=== PATIENT | male | born 1960 | race Hispanic/Latino ===

== ENCOUNTER 2016-08-13 11:54 | Observation (INO) | payer OTHER ==
[~2016-08-13] VITALS: Ht 167.6 cm; Wt 87.0 kg
[~2016-08-13 11:54] MED LIST: AMOXICILLIN500 MG PO; ANXIETY MED; ASPIRIN EC81 MG PO; ASPIRIN LOW DOS81 M2 PO; ATORVASTATIN CA40 MG PO; BACTRIM DS1 TAB PO; CARDIZEM CD 180 PO; CARDIZEM CD120 M1 PO; CARDIZEM CD120 MG PO; CEPHALEXIN500 MG PO; CIALIS10 MG PO; FISH OIL1000 MG PO; HYDROCO/APAP1 TA9 PO; HYZAAR1 TA1 PO; LEXAPRO10 MG PO; LORTAB 10 PO; LORTAB 1010 MG PO; METFORMIN500 MG PO; MUPIROCIN2 % EX; NAPROSYN500 MG PO; PANTOPRAZOLE SO40 M1 PO; PRAVASTATIN10 MG PO; PREVACID30 M2 PO; PRILOSEC20 MG/CAP PO; PROTONIX40 M2 PO; [UNRECOGNIZED DRUG - REMARK]
--- NOTE | 2016-08-13 12:03 | NUR ---
IN TO DISCUSS POC, ALL QUESTIONs ANSWERED /c FULL UNDERSTANDING RETURNED.
[2016-08-13 12:35] LABS: HEMATOCRIT 41.1 % (39.0-50.0); HEMOGLOBIN 14.2 g/dl (14.0-18.0); IMMATURE GRANULOCYTES 0.2 % (0.0-1.0); MEAN CELL VOLUME 97.9 fL CALC (80.0-100.0); MEAN CORPUSCULAR HGB 33.8 pG CALC (26.0-32.0); MEAN CORPUSCULAR HGB CONC 34.5 g/L CALC (32.0-36.0); NEUT# 3.34 thou/uL (1.82-7.42); RED BLOOD COUNT 4.2 mill/uL (4.70-6.10); RED CELL DISTRI WIDTH 12.8 % (11.5-15.5)
[2016-08-13] MEDS ORDERED: METFORMIN500 M1 PO (12:37)
[2016-08-13] MEDS ORDERED: ASPIRIN 81 LOW81 MG (12:37)
[2016-08-13] MEDS ORDERED: NEXIUM40 M1 PO (12:38)
--- NOTE | 2016-08-13 12:40 | NUR ---
EKG DONE, LINE LAB, CXR.. Pt GOING TO Radiology
[2016-08-13 12:47] LABS: ALBUMIN 4.5 g/dL (3.2-5.0); ALKALINE PHOSPHATASE 94 u/l (38-126); ANION GAP 24 (6-22 (CALC)); BILIRUBIN, TOTAL 0.6 mg/dL (0.0-1.4); BUN 21 mg/dL (9-20); BUN/CREATININE RATIO 21 (12-20 (CALC)); CALCIUM 8.9 mg/dL (8.4-10.2); CARBON DIOXIDE 23 mmol/l (22-30); CHLORIDE 103 mmol/l (95-108); GFR > 60 ML/MIN (>=60 (CALC)); GFR FOR AFR.AMER. > 60 ML/MIN (>=60 (CALC)); GLUCOSE 100 mg/dL (75-110); POTASSIUM 4.1 mmol/l (3.5-5.1); SGOT/AST 86 u/l (17-59); SGPT/ALT 43 u/l (21-72); SODIUM 146 mmol/l (137-146); TOTAL PROTEIN 8.5 g/dL (6.3-8.2)
[2016-08-13 12:59] LABS: MYOGLOBIN 275 ng/mL (0 - 121)
--- NOTE | 2016-08-13 13:15 | NUR ---
BCx1, IVF GOING.. SPOUSE AT BEDSIDE.
--- NOTE | 2016-08-13 14:10 | NUR ---
IN TO COLLECT UA, PER Pt "I WANT A CHEESEBURGER- I FEEL FINE"
[2016-08-13 14:32] LABS: BARBITURATES NEGATIVE (NEGATIVE); COCAINE NEGATIVE (NEGATIVE); METHADONE NEGATIVE (NEGATIVE); OXCYCODONE NEGATIVE (NEGATIVE); TETRAHYDROCANNABIONOL NEGATIVE (NEGATIVE); TRICYLIC ANTIDEPRESSANTS NEGATIVE (NEGATIVE)
--- NOTE | 2016-08-13 14:49 | NUR ---
IN TO REASSESS, PT RESTING QUIETLY /c SPOUSE AT BEDSIDE
--- NOTE | 2016-08-13 15:22 | NUR ---
IN TO REASSESS, STATUS UNCHANGED. LAB HERE FOR 2nd LACTIC
--- NOTE | 2016-08-13 15:49 | NUR ---
FAMILY AT BEDSIDE, Pt APPEARs COMFORTABLE.
--- NOTE | 2016-08-13 16:09 | NUR ---
AT BEDSIDE TO DISCUSS RESULTs AND NEED FOR ADMIT/TRANSFER
--- NOTE | 2016-08-13 16:20 | NUR ---
REPORT TO Trisha KRAMER MS
--- NOTE | 2016-08-13 16:46 | NUR ---
TO FLOOR VIA STRETCHER. NURSE TO NURSE GIVEN
[2016-08-13 17:02] VITALS: BP 150/88
--- NOTE | 2016-08-13 17:24 | NUR ---
PT ARRIVED FROM ER VIA STRETCEHR ACCOMPANIED BY STAFF. IV SITE IS FREE FROM REDNESS OR EDEMA. TELE MONITOR IN PLACE. CONTINUE TO OBSERVE AND MONITOR.
--- NOTE | 2016-08-13 18:03 | NUR ---
ASSESSMENT IS COMPLETED: IV SITE IS FREE FROM REDNESS OR EDEMA. TELE MONITOR IN PLACE
--- NOTE | 2016-08-13 19:00 | NUR ---
RECEIVED REPORT ON PATIENT FROM OFF GOING NURSE. PATIENT IN STABLE CONDITION. NO ACUTE DISTRESS NOTED. SPOUSE VISITING WITH PATIENT AT THIS TIME.
[2016-08-13 19:20] VITALS: BP 144/80
[2016-08-13 23:36] VITALS: BP 152/75
--- NOTE | 2016-08-14 | NUR ---
PATIENT RESTING QUIETLY. NO ACUTE DISTRESS NOTED.
[2016-08-14 03:58] VITALS: BP 160/94
--- NOTE | 2016-08-14 04:00 | NUR ---
PATIENT RESTING COMFORTABLY IN BED. NO ACUTE DISTRESS NOTED.
[2016-08-14 06:15] LABS: HEMATOCRIT 38.1 % (39.0-50.0); HEMOGLOBIN 13.1 g/dl (14.0-18.0); IMMATURE GRANULOCYTES 0.3 % (0.0-1.0); MEAN CELL VOLUME 97.4 fL CALC (80.0-100.0); MEAN CORPUSCULAR HGB 33.5 pG CALC (26.0-32.0); MEAN CORPUSCULAR HGB CONC 34.4 g/L CALC (32.0-36.0); NEUT# 4.88 thou/uL (1.82-7.42); RED BLOOD COUNT 3.91 mill/uL (4.70-6.10); RED CELL DISTRI WIDTH 12.6 % (11.5-15.5)
[2016-08-14 06:41] LABS: ANION GAP 17 (6-22 (CALC)); BUN 13 mg/dL (9-20); BUN/CREATININE RATIO 20 (12-20 (CALC)); CALCIUM 8.7 mg/dL (8.4-10.2); CARBON DIOXIDE 25 mmol/l (22-30); CHLORIDE 100 mmol/l (95-108); CREATININE 0.7 mg/dL (0.7-1.3); GFR > 60 ML/MIN (>=60 (CALC)); GFR FOR AFR.AMER. > 60 ML/MIN (>=60 (CALC)); GLUCOSE 108 mg/dL (75-110); HDL CHOLESTEROL 50 mg/dL (>=40); POTASSIUM 3.6 mmol/l (3.5-5.1); SODIUM 139 mmol/l (137-146); TOTAL CHOLESTEROL 261 mg/dl (0-199)
[2016-08-14 06:48] LABS: VLDL CHOLESTROL 117 mg/dl (8-62 (CALC))
[2016-08-14 06:55] LABS: TOTAL TRIGLYCERIDES 585 mg/dl (30-149)
--- NOTE | 2016-08-14 08:10 | NUR ---
ASSESSMENT IS COMPLETED: PT IS SITTING UP IN THE CHAIR. FAMILY IN THE ROOM. IV SITE IS FREE FROM REDNESS OR EDEMA. TELE MONITOR IN PLACE. CONTINUE TO OSBERVE AND MONITOR.
[2016-08-14] MEDS ORDERED: LIBRIUM25 M1 PO (09:02)
[2016-08-14 09:12] VITALS: BP 166/100
--- NOTE | 2016-08-14 11:11 | NUR ---
PT RECEIVED DISCHARGE INSTRUCTIONS AND THE IV SITE WAS DISCONTINUED AND CATHETER INTACT. NO REDNESS OR EDEMA. FAMILY IN THE ROOM.
--- NOTE | 2016-08-14 11:12 | NUR ---
Discharge instructions given. Patient verbalizes understanding of same. Discharged in stable condition via Wheelchair to Home with family. All belongings sent with pt.
== END 2016-08-14 10:46 | disposition home or self-care (01) | DRG 897 ==
LOC: ENPENDDIS → ED 11:54 → ED-I 16:00 → ED 16:08 → MS2 16:09
PROVIDERS: Emergency Medicine; ADMIT Internal Medicine; ATTEND Internal Medicine
DX: F10.229 Alcohol dependence with intoxication, unspecified (principal); E87.2 Acidosis; R07.89 Other chest pain; I10 Essential (primary) hypertension; E78.5 Hyperlipidemia, unspecified; K21.9 Gastro-esophageal reflux disease without esophagitis; R73.03 Prediabetes; Z87.891 Personal history of nicotine dependence
CPT/HCPCS: G0378

== ENCOUNTER 2016-09-10 20:51 | Emergency (ER) | payer OTHER ==
[~2016-09-10] VITALS: Ht 167.6 cm; Wt 84.1 kg
[~2016-09-10 20:51] MED LIST changes: +ASPIRIN 81 LOW81 MG; +LIBRIUM25 M1 PO; +METFORMIN500 M1 PO; +NEXIUM40 M1 PO
[2016-09-10 21:30] LABS: HEMATOCRIT 45.5 % (39.0-50.0); HEMOGLOBIN 16.1 g/dl (14.0-18.0); IMMATURE GRANULOCYTES 0.4 % (0.0-1.0); MEAN CELL VOLUME 96.2 fL CALC (80.0-100.0); MEAN CORPUSCULAR HGB CONC 35.4 g/L CALC (32.0-36.0); NEUT# 4.61 thou/uL (1.82-7.42); RED BLOOD COUNT 4.73 mill/uL (4.70-6.10); RED CELL DISTRI WIDTH 12.8 % (11.5-15.5)
[2016-09-10] MEDS ORDERED: CRESTOR40 MG PO (21:44)
[2016-09-10] MEDS ORDERED: NALTREXONE50 MG PO (21:45)
[2016-09-10] MEDS ORDERED: PANTOPRAZOLE SO40 MG PO (21:47)
[2016-09-10 21:50] LABS: ALBUMIN 4.5 g/dL (3.2-5.0); ALKALINE PHOSPHATASE 96 u/l (38-126); ANION GAP 23 (6-22 (CALC)); BILIRUBIN, TOTAL 0.6 mg/dL (0.0-1.4); BUN 18 mg/dL (9-20); BUN/CREATININE RATIO 23 (12-20 (CALC)); CALCIUM 9.1 mg/dL (8.4-10.2); CARBON DIOXIDE 22 mmol/l (22-30); CHLORIDE 100 mmol/l (95-108); CREATININE 0.8 mg/dL (0.7-1.3); GFR > 60 ML/MIN (>=60 (CALC)); GFR FOR AFR.AMER. > 60 ML/MIN (>=60 (CALC)); GLUCOSE 131 mg/dL (75-110); POTASSIUM 4.2 mmol/l (3.5-5.1); SGOT/AST 114 u/l (17-59); SGPT/ALT 53 u/l (21-72); SODIUM 142 mmol/l (137-146); TOTAL PROTEIN 8.4 g/dL (6.3-8.2)
[2016-09-10 22:00] LABS: ETHYL ALCOHOL 409 mg/dl (0-30)
[2016-09-10 22:32] LABS: URINE BILIRUBIN - DIPSTICK NEGATIVE (NEGATIVE); URINE BLOOD DIPSTICK TRACE-INTACT (NEGATIVE); URINE CLARITY CLEAR; URINE COLOR YELLOW; URINE GLUCOSE - DIPSTICK NEGATIVE (NEGATIVE); URINE KETONE NEGATIVE (NEGATIVE); URINE LEUK ESTERASE NEGATIVE (NEGATIVE); URINE NITRITE - DIPSTICK NEGATIVE (Negative); URINE PROTEIN - DIPSTICK 100 mg/dL (NEG-TRACE); URINE SPECIFIC GRAVITY 1.025; URINE UROBILINOGEN - DIPSTICK 0.2 E.U./dL (0.2)
[2016-09-10 22:36] LABS: BARBITURATES NEGATIVE (NEGATIVE); COCAINE NEGATIVE (NEGATIVE); METHADONE NEGATIVE (NEGATIVE); TETRAHYDROCANNABIONOL NEGATIVE (NEGATIVE); TRICYLIC ANTIDEPRESSANTS NEGATIVE (NEGATIVE)
[2016-09-10 22:37] LABS: OXCYCODONE NEGATIVE (NEGATIVE)
[2016-09-10 22:41] LABS: URINE RBC 0-2 RBC/hpf (0-5); URINE WBC 0-2 WBC/hpf (0-5)
[2016-09-11 06:30] VITALS: BP 125/88
== END 2016-09-11 06:30 | disposition home or self-care (01) | DRG 897 ==
LOC: ED 20:51
PROVIDERS: Emergency Medicine
DX: F10.129 Alcohol abuse with intoxication, unspecified (principal); R41.82 Altered mental status, unspecified; Y90.8 Blood alcohol level of 240 mg/100 ml or more

== ENCOUNTER 2016-10-03 00:35 | Emergency (ER) | payer OTHER ==
[~2016-10-03] VITALS: Ht 167.6 cm; Wt 82.6 kg
[~2016-10-03 00:35] MED LIST changes: +CRESTOR40 MG PO; +NALTREXONE50 MG PO; +PANTOPRAZOLE SO40 MG PO
[2016-10-03 01:12] LABS: HEMATOCRIT 41.5 % (39.0-50.0); HEMOGLOBIN 15.1 g/dl (14.0-18.0); IMMATURE GRANULOCYTES 0.3 % (0.0-1.0); MEAN CELL VOLUME 94.7 fL CALC (80.0-100.0); MEAN CORPUSCULAR HGB 34.5 pG CALC (26.0-32.0); MEAN CORPUSCULAR HGB CONC 36.4 g/L CALC (32.0-36.0); NEUT# 10.98 thou/uL (1.82-7.42); RED BLOOD COUNT 4.38 mill/uL (4.70-6.10); RED CELL DISTRI WIDTH 12.9 % (11.5-15.5)
[2016-10-03 01:25] LABS: ETHYL ALCOHOL 251 mg/dl (0-30)
[2016-10-03 01:26] LABS: ALBUMIN 3.9 g/dL (3.2-5.0); ALKALINE PHOSPHATASE 138 u/l (38-126); AMYLASE 198 u/l (30-110); ANION GAP 20 (6-22 (CALC)); BILIRUBIN, TOTAL 1.4 mg/dL (0.0-1.4); BUN 18 mg/dL (9-20); BUN/CREATININE RATIO 15 (12-20 (CALC)); CALCIUM 8.6 mg/dL (8.4-10.2); CARBON DIOXIDE 25 mmol/l (22-30); CHLORIDE 94 mmol/l (95-108); CREATININE 1.2 mg/dL (0.7-1.3); GFR > 60 ML/MIN (>=60 (CALC)); GFR FOR AFR.AMER. > 60 ML/MIN (>=60 (CALC)); GLUCOSE 99 mg/dL (75-110); POTASSIUM 3.4 mmol/l (3.5-5.1); SGOT/AST 203 u/l (17-59); SGPT/ALT 84 u/l (21-72); SODIUM 135 mmol/l (137-146); TOTAL PROTEIN 8.3 g/dL (6.3-8.2)
[2016-10-03 01:41] LABS: LIPASE 1907 u/l (23-300)
[2016-10-03 03:12] LABS: URINE BILIRUBIN - DIPSTICK NEGATIVE (NEGATIVE); URINE BLOOD DIPSTICK SMALL (NEGATIVE); URINE CLARITY SLIGHT CLOUDY; URINE COLOR YELLOW; URINE GLUCOSE - DIPSTICK NEGATIVE (NEGATIVE); URINE KETONE NEGATIVE (NEGATIVE); URINE LEUK ESTERASE NEGATIVE (NEGATIVE); URINE NITRITE - DIPSTICK NEGATIVE (Negative); URINE PROTEIN - DIPSTICK 30 mg/dL (NEG-TRACE); URINE SPECIFIC GRAVITY <=1.005; URINE UROBILINOGEN - DIPSTICK 0.2 E.U./dL (0.2)
[2016-10-03 03:21] LABS: URINE BACTERIA FEW hpf; URINE FINE GRAN CAST FEW lpf; URINE HYALINE CAST FEW lpf (NONE-RARE); URINE MUCUS FEW hpf (NONE-FEW); URINE RBC 0-2 RBC/hpf (0-5); URINE SQUAMOUS EPITHELIAL CELL FEW EPI/hpf (0-FEW)
[2016-10-03 03:55] VITALS: BP 112/72
== END 2016-10-03 03:58 | DRG 304 ==
LOC: ED 00:35 → ED-I 01:24 → ED 03:58
PROVIDERS: Emergency Medicine
DX: I10 Essential (primary) hypertension (principal); K85.90 Acute pancreatitis without necrosis or infection, unspecified; F10.129 Alcohol abuse with intoxication, unspecified; K80.20 Calculus of gallbladder without cholecystitis without obstruction; E11.9 Type 2 diabetes mellitus without complications; K21.9 Gastro-esophageal reflux disease without esophagitis; E78.5 Hyperlipidemia, unspecified
CPT/HCPCS: Q9967; S0164

== ENCOUNTER 2017-01-09 08:44 | Inpatient (IN) | payer OTHER ==
[~2017-01-09] VITALS: Ht 167.6 cm; Wt 76.4 kg
--- NOTE | 2017-01-09 08:44 | NUR ---
PT TO ROOM 12 VIA EMS
--- NOTE | 2017-01-09 09:25 | NUR ---
NEYDA PERFORMED WITH NURSE VIA TELESTROKE.
[2017-01-09 09:28] LABS: HEMATOCRIT 43.5 % (39.0-50.0); HEMOGLOBIN 15.2 g/dl (14.0-18.0); IMMATURE GRANULOCYTES 0.3 % (0.0-1.0); MEAN CELL VOLUME 92.9 fL CALC (80.0-100.0); MEAN CORPUSCULAR HGB 32.5 pG CALC (26.0-32.0); MEAN CORPUSCULAR HGB CONC 34.9 g/L CALC (32.0-36.0); NEUT# 4.73 thou/uL (1.82-7.42); RED BLOOD COUNT 4.68 mill/uL (4.70-6.10); RED CELL DISTRI WIDTH 14.2 % (11.5-15.5)
[2017-01-09 09:34] LABS: ALBUMIN 4.8 g/dL (3.2-5.0); ALKALINE PHOSPHATASE 74 u/l (38-126); ANION GAP 22 (6-22 (CALC)); BILIRUBIN, TOTAL 0.5 mg/dL (0.0-1.4); BUN 18 mg/dL (9-20); BUN/CREATININE RATIO 28 (12-20 (CALC)); CALCIUM 10.5 mg/dL (8.4-10.2); CARBON DIOXIDE 28 mmol/l (22-30); CHLORIDE 100 mmol/l (95-108); CREATININE 0.7 mg/dL (0.7-1.3); GFR > 60 ML/MIN (>=60 (CALC)); GFR FOR AFR.AMER. > 60 ML/MIN (>=60 (CALC)); GLUCOSE 108 mg/dL (75-110); SGOT/AST 58 u/l (17-59); SGPT/ALT 31 u/l (21-72); SODIUM 145 mmol/l (137-146); TOTAL PROTEIN 8.8 g/dL (6.3-8.2)
[2017-01-09 09:38] LABS: ACT PARTIAL THROMBO TIME 26.9 SECONDS (20.0-32.5); PROTHROMBIN TIME 10.2 SECONDS (9.0-12.5)
--- NOTE | 2017-01-09 09:45 | NUR ---
SIGNIFICANT OTHER AT BEDSIDE, PT MORE ALERT AND ORIENTED TIME PROGRESSES, REMAINS LIGHT SENSITIVE BUT MUCH IMPROVED OVER ARRIVAL, VS IMPROVED WELL, SEE INTERVENTIONS, AWAITING RETURN CALL FROM TELE STROKE STAFF AT [facility]
[2017-01-09 09:46] LABS: MYOGLOBIN 97 ng/mL (0 - 121)
--- NOTE | 2017-01-09 10:24 | NUR ---
PT MEDICATED FRO COMPLAINT OF HEADACHE, REMAINS ALERT AND ORIENTED, SIGNIFICANT OHTER STATES HE IS ALMOST BACK TO HIS NORMAL BUT STILL "A LITTLE BIT OFF", IVF WITH [facility] STARTED A TPRESCRIBED RATE, NO S/S OF ASPIRATION NOTED WITH PO INTAKE, CALL BARBOZA WITHIN REACH
--- NOTE | 2017-01-09 10:34 | NUR ---
AT BEDSIDE AND SPEAKING WITH PATIENT REGARDING PLAN OF CARE
--- NOTE | 2017-01-09 10:46 | NUR ---
SBAR PRINTED TO FLOOR
--- NOTE | 2017-01-09 10:47 | NUR ---
BLOOD SUGAR 84, PROVIDED WITH 2 OJ'S AND TURKEY SANDWICH, SIGNIFICANT OTHER REMAINS AT BEDSIDE
--- NOTE | 2017-01-09 12:00 | NUR ---
Admission Note Report Given to: SBAR PRINTED TO FLOOR Transported by: Wheelchair X Stretcher Transported with: X Nurse Transporter X Patent IV O2 X Traffic Control Signaler
--- NOTE | 2017-01-09 12:00 | NUR ---
REPORT CALLED TO JONNIE WILKS AT 1145, PT TO ROOM 291 VIA STRETCHER ON TELE BOX 4406
[2017-01-09 12:05] VITALS: BP 131/90
--- NOTE | 2017-01-09 12:05 | NUR ---
PT ARRIVED TO FLOOR VIA STRETCHER ACCDOMPANIED BY EFE DOLAN. PT AMBULATED TO BED WITH STEADY GAIT. DENIES PAIN. REPORTING OF CONCERNS ENCOURAGED. FALL PRECAUTIONS REINFORCED. PT ORIENTED TO ROOM AND EQUIPMENT. PLAN OF CARE DISCUSSED. PT. HAS DIFFICULTY WITH WORD FINDING AT TIMES. POOR HISTORIAN. CALL LIGHT REVIEWED AND IN REACH. PT STATES UNDERSTANDING.
--- NOTE | 2017-01-09 13:05 | NUR ---
DR. REYES IN TO SEE PT AT THIS TIME.
--- NOTE | 2017-01-09 13:42 | NUR ---
PT DIAPHORETIC, TREMORS NOTED. LIBRIUM AND ATIVAN PRN ORDERED. LIBRIUM ADMINISTERED AT THIS TIME. WILL CONTINUE TO MONITOR WITHDRAWL SYMPTOMS.
--- NOTE | 2017-01-09 14:28 | NUR ---
PT AND PT'S SIGNIFICANT OTHER EDUCATED ON SEIZURE PRECAUTIONS. BED RAILS PADDED FOR SAFETY. PT STATES UNDERSTANDING.
[2017-01-09 15:54] VITALS: BP 156/104
--- NOTE | 2017-01-09 15:54 | NUR ---
TREMORS NOTED, DIAPHORESIS CONTINUES. ATIVAN IV ADMINISTERED. WILL CONTINUE TO MONITOR.
--- NOTE | 2017-01-09 17:02 | NUR ---
PT APPEARS RELAXED. SIGNIFICANT OTHER AT BEDSIDE. NO TREMORS AT THIS TIME. BP 167/105, APRESOLINE IV PRN ADMINISTERED. WILL CONTINUE TO MONITOR.
[2017-01-09 17:05] VITALS: BP 167/105
--- NOTE | 2017-01-09 19:00 | NUR ---
REPORT RECEIVED FROM JONNIE CHRISTOPHER RN. FOUND PT A/OX3, SIGNIFICANT OTHER AT BEDSIDE, PLANS TO STAY ALL NIGHT, DENIES PAIN, ASKING FOR SLEEPING PILL, TREMORS NOTED, WILL F/U WITH ASSESSMENT AND MED SCHEDULE, CALL BARBOZA AT REACH, CONTACT PRECAUTIONS FOR HX OF MRSA, R NARE SWAB SENT TO LAB. TELE IN PLACE, WILL CONTINUE TO MONITOR.
[2017-01-09 19:05] LABS: URINE BILIRUBIN - DIPSTICK NEGATIVE (NEGATIVE); URINE BLOOD DIPSTICK NEGATIVE (NEGATIVE); URINE CLARITY CLEAR; URINE COLOR YELLOW; URINE GLUCOSE - DIPSTICK NEGATIVE (NEGATIVE); URINE KETONE TRACE mg/dL (NEGATIVE); URINE LEUK ESTERASE NEGATIVE (NEGATIVE); URINE NITRITE - DIPSTICK NEGATIVE (Negative); URINE PROTEIN - DIPSTICK 100 mg/dL (NEG-TRACE); URINE SPECIFIC GRAVITY 1.025
[2017-01-09 19:07] LABS: URINE RBC 0-2 RBC/hpf (0-5); URINE WBC 0-2 WBC/hpf (0-5)
[2017-01-09 19:08] LABS: BARBITURATES NEGATIVE (NEGATIVE); COCAINE NEGATIVE (NEGATIVE); METHADONE NEGATIVE (NEGATIVE); OXCYCODONE NEGATIVE (NEGATIVE); TETRAHYDROCANNABIONOL NEGATIVE (NEGATIVE); TRICYLIC ANTIDEPRESSANTS NEGATIVE (NEGATIVE)
[2017-01-09 19:59] VITALS: BP 160/89
--- NOTE | 2017-01-09 20:26 | NUR ---
ACCU CHECK FINGERSTICK 121 AT THIS TIME; PROVIDED A SNACK. WILL CONTINUE TO MONITOR.
[2017-01-09 21:03] VITALS: BP 170/106
--- NOTE | 2017-01-09 21:38 | NUR ---
MEDICATED WITH APRESOLINE FOR BP 177/105 L ARM SITTING, WILL CONTINUE TO MONITOR, SIGNIFICANT OTHER AT BEDSIDE.
[2017-01-09 23:56] VITALS: BP 159/91
[2017-01-10] VITALS (12 sets, daily range): BP systolic 118–174; BP diastolic 76–108
--- NOTE | 2017-01-10 00:10 | NUR ---
SIGNIFICATN OTHER AT BEDSIDE, PT APPEARS TO BE SLEEPING WITH EYES CLOSED, NO SYMPTOMS OF ALCOHOL WITHDRAWAL AT THIS TIME, MILD TREMORS NOTED ON BUE, RESP ARE UNLABORED, AROUSES TO VERBAL STIMULI, IS ALERT AND ORIENTED X3, DENIES PAIN AT THIS TIME, ST ON MONITOR PER ER WITH HR 116, BP 159/91, AFEBRILE, NO NEURO DEFICITS NOTED AT THIS TIME, WILL CONTINUE TO MONITOR, CONTACT PRECAUTIONS REMAIN IN PLACE, CALL BARBOZA AT REACH.
--- NOTE | 2017-01-10 04:25 | NUR ---
THIS HOG CONFINEMENT SYSTEM MANAGER PROMTLY ANSWERED PT CALL LIGHT, C/O FRONTAL HEADACHE, VITAL SIGNS TAKEN AND PT IS AFEBRILE, BP 165/98, RESP ARE EVEN AND UNLABORED, SLIGHTLY DIAPHORETIC, TREMOLOUS, MEDICATED WITH APRESOLINE IV AND LIBRIUM PO PER MD ORDERS, FOUND PT ALERT AND ORIENTED X3, DENIES N/V OR OTHER DISCOMFORT, NO DISTRESS NOTED, LR INFUSING AT 100 ML/HR WITHOUT DIFFICULTY, IV SITE IS FREE OF EDEMA OR REDNESS, SIGNIFICANT OTHER REMAINS AT BEDSIDE, CONTACT PRECAUTIONS CONTINUE, CALL BARBOZA AT REACH, WILL CONTINUE TO MONITOR.
--- NOTE | 2017-01-10 05:30 | NUR ---
PT SEEMS ANXIOUS AND RESTLESS, C/O HEADACHE, TREMOULOUS, MILD DIAPHORESIS NOTED, RESP ARE EVEN AND UNLABORED, WILL MEDICATE PER EMAR. A/O X3, NO CONFUSION OR NEURO DEFICITS NOTED. WILL CONTINUE TO MONITOR.
--- NOTE | 2017-01-10 05:48 | NUR ---
PT C/O ACHING FRONTAL HEADACHE, RATES IT AT 01/02, WILL NOTIFY MD OF PT STATUS, ACCU CHECK/FINGERSTICK 120 AT THIS TIME, BP 161/92 PER DINAMAP, MANUAL BP 158/90, RESP ARE EVEN AND UNLABORED, SPO2 99% AT THIS TIME, 98.0 TYMPANIC TEMP, ST ON MONITOR, HR 123-135 PER ER TELE MONITOR, V[place], PT STATES "I FEEL LIKE MY HEART IS BEATING FASTER AT TIMES." DENIES CHEST PAIN, N/V, STATES FEEL WEAKEST THAN LAST NIGHT, TREMOLOUS NOTED, MEDICATED WITH ATIVAN IV PER MD ORDERS, LAB IN PT ROOM DRAWING BLOOD SAMPLES, BED SIDE RAILS PADDED FOR SEIZURES PRECAUTIONS, LR INFUSING AT 100ML/HR WITHOUT INCIDENT, WILL CONTINUE TO MONITOR.
[2017-01-10 06:26] LABS: HEMATOCRIT 41.3 % (39.0-50.0); HEMOGLOBIN 14.4 g/dl (14.0-18.0); IMMATURE GRANULOCYTES 0.5 % (0.0-1.0); MEAN CELL VOLUME 94.1 fL CALC (80.0-100.0); MEAN CORPUSCULAR HGB 32.8 pG CALC (26.0-32.0); MEAN CORPUSCULAR HGB CONC 34.9 g/L CALC (32.0-36.0); NEUT# 7.43 thou/uL (1.82-7.42); RED BLOOD COUNT 4.39 mill/uL (4.70-6.10); RED CELL DISTRI WIDTH 14.1 % (11.5-15.5)
[2017-01-10 06:30] LABS: AMYLASE 127 u/l (30-110); ANION GAP 16 (6-22 (CALC)); BUN 14 mg/dL (9-20); BUN/CREATININE RATIO 23 (12-20 (CALC)); CALCIUM 9.7 mg/dL (8.4-10.2); CARBON DIOXIDE 28 mmol/l (22-30); CHLORIDE 98 mmol/l (95-108); CREATININE 0.6 mg/dL (0.7-1.3); GFR > 60 ML/MIN (>=60 (CALC)); GFR FOR AFR.AMER. > 60 ML/MIN (>=60 (CALC)); GLUCOSE 119 mg/dL (75-110); LIPASE 381 u/l (23-300); SODIUM 138 mmol/l (137-146)
--- NOTE | 2017-01-10 06:40 | NUR ---
BP 174/104 WITH DINAMAP, 170/102 MANUAL BP, C/O ACHING HEADACHE, RATES IT AT 5/10, WILL MEDICATE PER EMAR. RESP ARE UNLABORED, NO DISTRESS NOTED, WILL CONTINUE TO MONITOR.
--- NOTE | 2017-01-10 07:45 | NUR ---
REPORT RECEIVED FROM EFE RAMÍREZ. PT SITTING UPRIGHT IN BED. REPORTS MODERATE HEADACHE. TYLENOL PO ADMINISTERED. MILD TREMORS NOTED, NO DIAPHORESIS, NAUSEA OR VOMITING. SIGNIFICANT OTHER AT BEDSIDE. REPORTING OF CONCERNS ENCOURAGED. MEDICATION SCHEDULES REVIEWED. PLAN OF CARE DISCUSSED. CALL LIGHT REVIEWED AND IN REACH. PT STATES UNDERSTANDING.
--- NOTE | 2017-01-10 08:39 | NUR ---
PT REPORTS SOME RELIEF OF HEADACHE SINCE TYLENOL ADMINISTRATION. BP 168/108, HR 127 BPM. APRESOLINE IV ADMINISTERED PER PRN ORDER. WILL CONTINUE TO MONITOR.
[2017-01-10 09:40] LABS: MAGNESIUM 1.1 mg/dL (1.6-2.3)
--- NOTE | 2017-01-10 12:05 | NUR ---
PT SLEEPING AT THIS TIME. SIGNIFICANT OTHER AT BEDSIDE. CALL LIGHT WITHIN REACH.
--- NOTE | 2017-01-10 13:59 | NUR ---
PT REPORTS MODERATE HEADACHE. TREMORS, DIAPHORESIS AND AGITAION NOTED. ATIVAN IV AND TYLENOL PO ADMINISTERED. WILL CONTINUE TO MONITOR.
--- NOTE | 2017-01-10 16:14 | NUR ---
PT RESTING WITH EYES CLOSED. WILL CONTINUE TO MONITOR.
[2017-01-10 17:42] LABS: ANION GAP 15 (6-22 (CALC)); BUN 10 mg/dL (9-20); BUN/CREATININE RATIO 17 (12-20 (CALC)); CALCIUM 9.2 mg/dL (8.4-10.2); CARBON DIOXIDE 28 mmol/l (22-30); CHLORIDE 95 mmol/l (95-108); CREATININE 0.5 mg/dL (0.7-1.3); GFR > 60 ML/MIN (>=60 (CALC)); GFR FOR AFR.AMER. > 60 ML/MIN (>=60 (CALC)); GLUCOSE 130 mg/dL (75-110); POTASSIUM 3.3 mmol/l (3.5-5.1); SODIUM 134 mmol/l (137-146)
--- NOTE | 2017-01-10 20:05 | NUR ---
PT. RESTING IN BED WITH SIGNIFICANT OTHER AT BEDSIDE. ASSESSMENT COMPLETED. NO SHAKINESS OR ANXIETY NOTED AT THIS TIME. UPDATED ON POC, VERBALIZES UNDERSTANDING. PT. C/O SLIGHT URIOSTEGUI, COOL PACK APPLIED TO FOREHEAD. IV SITE PATENT AND INFUSING ORDERED IVF. ENCOURAGED TO CALL FOR ANY NEEDS. CALL LIGHT IS IN REACH. WILL CONTINUE TO MONITOR.
--- NOTE | 2017-01-10 22:45 | NUR ---
PT. C/O SLIGHT URIOSTEGUI, AND HAS SOME TREMORS AND SWEATING NOTED, MEDICATED WITH ORDERED ATIVAN AND TYLENOL, WILL REASSESS. DENIES FURTHER NEEDS. CALL LIGHT IS IN REACH.
--- NOTE | 2017-01-11 02:00 | NUR ---
PT. RESTING IN BED WITH EYES CLOSED, NO DISTRESS NOTED. RESP EVEN AND UNLABORED. CALL LIGHT IS IN REACH.
--- NOTE | 2017-01-11 03:00 | NUR ---
PT. RESTING IN BED ON LEFT SIDE WITH EYES CLOSED, NO DISTRESS NOTED. RESP EVEN AND UNLABORED. WILL CONTINUE TO MONITOR.
[2017-01-11 04:02] VITALS: BP 141/93
--- NOTE | 2017-01-11 04:02 | NUR ---
PT. AWAKENED FOR NEURO CHECK,PT. REMAINS A/A/OX3. REPORTS FEELING BETTER, BUT IS A LITTLE WEAK. NO ANXIETY OR TREMORS NOTED. PT. DENIES URIOSTEGUI OR PAIN. PT. REPORTS HE WOULD LIKE TO GO HOME TODAY, WILL RELAY THE MESSAGE IN SHIFT REPORT. WILL CONTINUE TO MONITOR PT. VS OBTAINED. INSTRUCTED PT. TO CALL FOR ANY WITHDRAWAL SYMPTOMS, VERBALIZES UNDERSTANDING. CALL LIGHT IS IN REACH.
--- NOTE | 2017-01-11 05:34 | NUR ---
PT. RESTING IN BED WITH EYES CLOSED, NO DISTRESS NOTED. RESP EVEN AND UNLABORED. CALL LIGHT IS IN REACH. WILL CONTINUE TO MONITOR.
--- NOTE | 2017-01-11 06:40 | NUR ---
PT. C/O JANICE, MEDICATED WITH ORDERED LIBRIUM AT THIS TIME. WILL CONTINUE TO MONITOR.
[2017-01-11 06:56] LABS: HEMATOCRIT 39.2 % (39.0-50.0); HEMOGLOBIN 13.5 g/dl (14.0-18.0); IMMATURE GRANULOCYTES 0.3 % (0.0-1.0); MEAN CELL VOLUME 94.5 fL CALC (80.0-100.0); MEAN CORPUSCULAR HGB 32.5 pG CALC (26.0-32.0); MEAN CORPUSCULAR HGB CONC 34.4 g/L CALC (32.0-36.0); NEUT# 5.52 thou/uL (1.82-7.42); RED BLOOD COUNT 4.15 mill/uL (4.70-6.10); RED CELL DISTRI WIDTH 13.9 % (11.5-15.5)
--- NOTE | 2017-01-11 07:00 | NUR ---
RECEIVED BEDSIDE REPORT FROM YANIQUE WILKS. RESTING IN BED WITH EYES CLOSED, AWAKENS EASILY. FAMILY AT BEDSIDE. RESPS EVEN AND UNLABORED ON ROOM AIR, TELE MONITOR IN PLACE. #22 LFA INFUSING WITHOUT DIFFICULTY, SITE APPEARS HEALTHY. RFA WITH TRACE EDEMA, WARM PACK TO RIGHT FOREARM. VOICES NO NEEDS AT THIS TIME. PLAN OF CARE DISCUSSED. SAFETY PRECAUTIONS REINFORCED. BED IN LOWEST POSITION WITH WHEELS LOCKED. CALL LIGHT WITHIN REACH.
[2017-01-11 07:19] LABS: ANION GAP 14 (6-22 (CALC)); BUN 9 mg/dL (9-20); BUN/CREATININE RATIO 16 (12-20 (CALC)); CALCIUM 9.4 mg/dL (8.4-10.2); CARBON DIOXIDE 26 mmol/l (22-30); CHLORIDE 100 mmol/l (95-108); CREATININE 0.6 mg/dL (0.7-1.3); GFR > 60 ML/MIN (>=60 (CALC)); GFR FOR AFR.AMER. > 60 ML/MIN (>=60 (CALC)); GLUCOSE 89 mg/dL (75-110); MAGNESIUM 1.6 mg/dL (1.6-2.3); POTASSIUM 3.9 mmol/l (3.5-5.1); SODIUM 137 mmol/l (137-146)
[2017-01-11 08:22] VITALS: BP 144/100
--- NOTE | 2017-01-11 08:35 | NUR ---
MEDICATED WITH ATIVAN 2MG IVP FOR C/O SHAKINESS, SWEATING AND ANXIETY. FAMILY AT BEDSIDE. #22 LFA INFUSING WITHOUT DIFFICULTY, SITE APPEARS HEALTHY. RESPS EVEN AND UNLABORED ON ROOM AIR, TELE MONITOR IN PLACE. CALL LIGHT WITHIN REACH.
[2017-01-11] MEDS ORDERED: TAB-A-VITE W/1 COMBO PO (09:25)
--- NOTE | 2017-01-11 10:45 | NUR ---
DR GONSALVES IN WITH PT, NEW ORDERS RECEIVED.
[2017-01-11 12:08] VITALS: BP 143/91
--- NOTE | 2017-01-11 12:44 | NUR ---
SITTING IN BEDSIDE CHAIR, FAMILY AT BEDSIDE. RESPS EVEN AND UNLABORED ON ROOM AIR, TELE MONITOR IN PLACE. DENIES ANXIETY, HALLUCINATIONS, NO SWEATING OR TREMORS NOTED. #22 LFA INFUSING WITHOUT DIFFICULTY, SITE APPEARS HEALTHY. CALL LIGHT WITHIN REACH. WILL CONTINUE TO MONITOR.
[2017-01-11 15:28] VITALS: BP 150/95
--- NOTE | 2017-01-11 15:36 | NUR ---
MEDICATED WITH LIBRIUM PO FOR C/O "FEELING A LITTLE HYPER." RESPS EVEN AND UNLABORED ON ROOM AIR, TELE MONITOR IN PLACE. SLIGHT TREMOR NOTED. CALL LIGHT WITHIN REACH. WILL CONTINUE TO MONITOR.
--- NOTE | 2017-01-11 19:30 | NUR ---
PT SITTING IN RECLINER CHAIR A/O X3, RESPIRATIONS EVEN AND UNLABORED. LR INFUSING TO LFA AT 100CC/HR. SIGNIFICANT OTHER AT BED SIDE. NO CONCERNS VOICED. CALL LIGHT IN REACH. WILL CONTINUE TO MONITOR.
[2017-01-11 19:48] VITALS: BP 131/85
[2017-01-11 23:50] VITALS: BP 150/99
--- NOTE | 2017-01-12 00:20 | NUR ---
RESTING IN SEMIFOWLER WITH EYES CLOSED, RESPIRATIONS EVEN AND UNLABORED.
--- NOTE | 2017-01-12 03:00 | NUR ---
RESTING IN BED WITH EYES CLOSED RESPIRATIONS EVEN AND UNLABORED.
[2017-01-12 04:15] VITALS: BP 123/81
--- NOTE | 2017-01-12 04:59 | NUR ---
PT CALLED C/O OF FEELING SHAKEY, TREMORS NOTICED TO ARMS. MEDICATED WITH ATIVAN 2MG IV, AND LIBRIUM 25MG PER MAR. ADMITS TO FEELING BETTER A FEW MINUTES AFTER MEDICATED. IV FLUIDS CONTINUE INFUSING TO LFA AT 100CC/HR. CALL LIGHT IN REACH.
[2017-01-12 05:36] LABS: ANION GAP 13 (6-22 (CALC)); BUN 10 mg/dL (9-20); BUN/CREATININE RATIO 16 (12-20 (CALC)); CALCIUM 9.3 mg/dL (8.4-10.2); CARBON DIOXIDE 26 mmol/l (22-30); CHLORIDE 102 mmol/l (95-108); CREATININE 0.6 mg/dL (0.7-1.3); GFR > 60 ML/MIN (>=60 (CALC)); GFR FOR AFR.AMER. > 60 ML/MIN (>=60 (CALC)); GLUCOSE 84 mg/dL (75-110); POTASSIUM 3.8 mmol/l (3.5-5.1); SODIUM 137 mmol/l (137-146)
[2017-01-12 05:41] LABS: HEMATOCRIT 36.8 % (39.0-50.0); HEMOGLOBIN 12.6 g/dl (14.0-18.0); IMMATURE GRANULOCYTES 1.2 % (0.0-1.0); MEAN CELL VOLUME 95.3 fL CALC (80.0-100.0); MEAN CORPUSCULAR HGB 32.6 pG CALC (26.0-32.0); MEAN CORPUSCULAR HGB CONC 34.2 g/L CALC (32.0-36.0); NEUT# 3.88 thou/uL (1.82-7.42); RED BLOOD COUNT 3.86 mill/uL (4.70-6.10); RED CELL DISTRI WIDTH 13.5 % (11.5-15.5)
--- NOTE | 2017-01-12 07:03 | NUR ---
RECEIVED BEDSIDE REPORT FROM KIM KRAMER. SITTING ON EDGE OF BED, FAMILY AT BEDSIDE. RESPS EVEN AND UNLABORED ON ROOM AIR, TELE MONITOR IN PLACE. REPORTS HAVING HAD A "GREAT NIGHT." #22 LFA INFUSING WITHOUT DIFFICULTY, SITE APPEARS HEALTHY. PLAN OF CARE DISCUSSED. SAFETY PRECAUTIONS REINFORCED. BED IN LOWEST POSITION WITH WHEELS LOCKED. CALL LIGHT WITHIN REACH. ENCOURAGED PT AND FAMILY TO CALL FOR ANY NEEDS.
[2017-01-12 07:30] VITALS: BP 141/96
--- NOTE | 2017-01-12 11:35 | NUR ---
DR GONSALVES IN WITH PT, NEW ORDERS RECEIVED.
[2017-01-12 12:30] VITALS: BP 140/82
[2017-01-12] MEDS ORDERED: LIBRIUM25 MG PO (13:27)
[2017-01-12] MEDS ORDERED: ATIVAN0.5 MG PO (13:30)
--- NOTE | 2017-01-12 14:25 | NUR ---
Discharge instructions given. Patient verbalizes understanding of same. Discharged in stable condition via Wheelchair to Home with spouse. All belongings sent with pt.
== END 2017-01-12 14:20 | disposition home or self-care (01) | DRG 897 ==
LOC: ED 08:44 → ED-I 10:09 → ED 11:35 → MS2 11:36
PROVIDERS: Emergency Medicine; Internal Medicine; Nurse Practitioner Family; ADMIT Internal Medicine; ATTEND Internal Medicine
DX: F10.232 Alcohol dependence with withdrawal with perceptual disturbance (principal); E11.649 Type 2 diabetes mellitus with hypoglycemia without coma; I10 Essential (primary) hypertension; E78.5 Hyperlipidemia, unspecified; K21.9 Gastro-esophageal reflux disease without esophagitis; E83.42 Hypomagnesemia; E11.69 Type 2 diabetes mellitus with other specified complication; F10.229 Alcohol dependence with intoxication, unspecified; Y90.7 Blood alcohol level of 200-239 mg/100 ml; Z79.84 Long term (current) use of oral hypoglycemic drugs; Z87.891 Personal history of nicotine dependence
CPT/HCPCS: J2060

== ENCOUNTER 2017-02-16 23:18 | Observation (INO) | payer OTHER ==
[~2017-02-16] VITALS: Ht 167.6 cm; Wt 77.0 kg
[~2017-02-16 23:18] MED LIST changes: +ATIVAN0.5 MG PO; +LIBRIUM25 MG PO; +TAB-A-VITE W/1 COMBO PO
[2017-02-16 23:47] LABS: HEMATOCRIT 43.6 % (39.0-50.0); HEMOGLOBIN 15.4 g/dl (14.0-18.0); IMMATURE GRANULOCYTES 0.3 % (0.0-1.0); MEAN CORPUSCULAR HGB 32.5 pG CALC (26.0-32.0); MEAN CORPUSCULAR HGB CONC 35.3 g/L CALC (32.0-36.0); NEUT# 4.46 thou/uL (1.82-7.42); RED BLOOD COUNT 4.74 mill/uL (4.70-6.10); RED CELL DISTRI WIDTH 14.5 % (11.5-15.5)
[2017-02-17 00:04] LABS: ALBUMIN 4.1 g/dL (3.2-5.0); ALKALINE PHOSPHATASE 117 u/l (38-126); ANION GAP 22 (6-22 (CALC)); BILIRUBIN, TOTAL 1.3 mg/dL (0.0-1.4); BUN 17 mg/dL (9-20); BUN/CREATININE RATIO 21 (12-20 (CALC)); CALCIUM 8.7 mg/dL (8.4-10.2); CARBON DIOXIDE 25 mmol/l (22-30); CHLORIDE 100 mmol/l (95-108); CREATININE 0.8 mg/dL (0.7-1.3); GFR > 60 ML/MIN (>=60 (CALC)); GFR FOR AFR.AMER. > 60 ML/MIN (>=60 (CALC)); GLUCOSE 103 mg/dL (75-110); POTASSIUM 3.7 mmol/l (3.5-5.1); SGOT/AST 135 u/l (17-59); SGPT/ALT 72 u/l (21-72); SODIUM 143 mmol/l (137-146)
[2017-02-17 00:08] LABS: ETHYL ALCOHOL 262 mg/dl (0-30)
[2017-02-17 00:13] LABS: LIPASE 371 u/l (23-300)
[2017-02-17 05:32] VITALS: BP 149/103
[2017-02-17 07:13] LABS: URINE BILIRUBIN - DIPSTICK NEGATIVE (NEGATIVE); URINE BLOOD DIPSTICK NEGATIVE (NEGATIVE); URINE CLARITY CLEAR; URINE COLOR YELLOW; URINE GLUCOSE - DIPSTICK NEGATIVE (NEGATIVE); URINE KETONE NEGATIVE (NEGATIVE); URINE LEUK ESTERASE NEGATIVE (NEGATIVE); URINE NITRITE - DIPSTICK NEGATIVE (Negative); URINE PH 6.5 (4.5-8.0); URINE PROTEIN - DIPSTICK TRACE mg/dL (NEG-TRACE); URINE SPECIFIC GRAVITY 1.015
[2017-02-17 07:18] LABS: BARBITURATES NEGATIVE (NEGATIVE); COCAINE NEGATIVE (NEGATIVE); METHADONE NEGATIVE (NEGATIVE); OXCYCODONE NEGATIVE (NEGATIVE); TETRAHYDROCANNABIONOL NEGATIVE (NEGATIVE); TRICYLIC ANTIDEPRESSANTS NEGATIVE (NEGATIVE)
[2017-02-17 07:41] VITALS: BP 127/86
[2017-02-17 12:30] VITALS: BP 149/99
[2017-02-17] MEDS ORDERED: ASPIRIN EC LOW81 MG PO (13:57)
[2017-02-17] MEDS ORDERED: CRESTOR40 MG PO (13:57)
[2017-02-17] MEDS ORDERED: PANTOPRAZOLE SO40 MG PO (13:58)
[2017-02-17] MEDS ORDERED: METFORMIN500 MG PO (13:58)
[2017-02-17] MEDS ORDERED: DILTIAZEM90 M1 PO (13:59)
[2017-02-17] MEDS ORDERED: LACTULOSE PO (14:00)
[2017-02-17] MEDS ORDERED: LIBRIUM25 M1 PO ×2 (14:02→14:11)
[2017-02-17] MEDS ORDERED: NALTREXONE50 MG PO (14:02)
[2017-02-17] MEDS ORDERED: LEXAPRO10 MG PO (14:02)
[2017-02-17] MEDS ORDERED: ANTABUSE500 MG PO (14:03)
== END 2017-02-17 14:40 | disposition home or self-care (01) | DRG 897 ==
LOC: ED 23:18 → ED-I 02-17 02:11 → ED 02-17 02:41 → MS2 02-17 02:42
PROVIDERS: Emergency Medicine; ADMIT Internal Medicine; ATTEND Internal Medicine
DX: F10.229 Alcohol dependence with intoxication, unspecified (principal); G31.2 Degeneration of nervous system due to alcohol; I10 Essential (primary) hypertension; E11.9 Type 2 diabetes mellitus without complications; F41.9 Anxiety disorder, unspecified; F31.9 Bipolar disorder, unspecified; K21.9 Gastro-esophageal reflux disease without esophagitis; E78.5 Hyperlipidemia, unspecified; R42 Dizziness and giddiness; L30.9 Dermatitis, unspecified; Y90.8 Blood alcohol level of 240 mg/100 ml or more; Z79.84 Long term (current) use of oral hypoglycemic drugs
CPT/HCPCS: G0378; J2060

== ENCOUNTER 2017-03-12 21:47 | Emergency (ER) | payer OTHER ==
[~2017-03-12] VITALS: Ht 167.6 cm; Wt 81.8 kg
[~2017-03-12 21:47] MED LIST changes: +ANTABUSE500 MG PO; +ASPIRIN EC LOW81 MG PO; +DILTIAZEM90 M1 PO; +LACTULOSE PO
[2017-03-12 22:22] LABS: HEMATOCRIT 38.1 % (39.0-50.0); HEMOGLOBIN 13.3 g/dl (14.0-18.0); IMMATURE GRANULOCYTES 0.2 % (0.0-1.0); MEAN CELL VOLUME 98.2 fL CALC (80.0-100.0); MEAN CORPUSCULAR HGB 34.3 pG CALC (26.0-32.0); MEAN CORPUSCULAR HGB CONC 34.9 g/L CALC (32.0-36.0); NEUT# 2.78 thou/uL (1.82-7.42); RED BLOOD COUNT 3.88 mill/uL (4.70-6.10); RED CELL DISTRI WIDTH 15.5 % (11.5-15.5)
[2017-03-12 22:39] LABS: ALBUMIN 3.8 g/dL (3.2-5.0); ALKALINE PHOSPHATASE 144 u/l (38-126); ANION GAP 20 (6-22 (CALC)); BILIRUBIN, TOTAL 0.5 mg/dL (0.0-1.4); BUN 7 mg/dL (9-20); BUN/CREATININE RATIO 11 (12-20 (CALC)); CALCIUM 8.4 mg/dL (8.4-10.2); CARBON DIOXIDE 24 mmol/l (22-30); CHLORIDE 109 mmol/l (95-108); CREATININE 0.7 mg/dL (0.7-1.3); GFR > 60 ML/MIN (>=60 (CALC)); GFR FOR AFR.AMER. > 60 ML/MIN (>=60 (CALC)); GLUCOSE 91 mg/dL (75-110); POTASSIUM 3.4 mmol/l (3.5-5.1); SGOT/AST 47 u/l (17-59); SGPT/ALT 39 u/l (21-72); SODIUM 149 mmol/l (137-146); TOTAL PROTEIN 7.1 g/dL (6.3-8.2)
[2017-03-13 02:20] LABS: ETHYL ALCOHOL 406 mg/dl (0-30)
[2017-03-13 02:27] LABS: BARBITURATES NEGATIVE (NEGATIVE); COCAINE NEGATIVE (NEGATIVE); METHADONE NEGATIVE (NEGATIVE); OXCYCODONE NEGATIVE (NEGATIVE); TETRAHYDROCANNABIONOL NEGATIVE (NEGATIVE); TRICYLIC ANTIDEPRESSANTS NEGATIVE (NEGATIVE)
[2017-03-13 06:47] VITALS: BP 138/87
== END 2017-03-13 06:47 | disposition home or self-care (01) | DRG 897 ==
LOC: ED 21:47
PROVIDERS: Emergency Medicine
DX: F10.129 Alcohol abuse with intoxication, unspecified (principal); I10 Essential (primary) hypertension; E11.9 Type 2 diabetes mellitus without complications; K21.9 Gastro-esophageal reflux disease without esophagitis; E78.5 Hyperlipidemia, unspecified; R41.82 Altered mental status, unspecified

== ENCOUNTER 2017-09-15 20:52 | Emergency (ER) | payer OTHER ==
[~2017-09-15] VITALS: Ht 167.6 cm; Wt 79.0 kg
[2017-09-15 21:53] LABS: URINE BILIRUBIN - DIPSTICK NEGATIVE (NEGATIVE); URINE BLOOD DIPSTICK NEGATIVE (NEGATIVE); URINE COLOR YELLOW; URINE GLUCOSE - DIPSTICK NEGATIVE (NEGATIVE); URINE KETONE NEGATIVE (NEGATIVE); URINE LEUK ESTERASE NEGATIVE (NEGATIVE); URINE NITRITE - DIPSTICK NEGATIVE (Negative); URINE PROTEIN - DIPSTICK 30 mg/dL (NEG-TRACE); URINE SPECIFIC GRAVITY 1.015; URINE UROBILINOGEN - DIPSTICK 0.2 E.U./dL (0.2)
[2017-09-15 21:54] LABS: URINE CLARITY CLEAR; URINE RBC 0-2 RBC/hpf (0-5); URINE WBC 0-2 WBC/hpf (0-5)
[2017-09-15 21:55] LABS: HEMATOCRIT 46.4 % (39.0-50.0); IMMATURE GRANULOCYTES 1.1 % (0.0-1.0); MEAN CELL VOLUME 96.7 fL CALC (80.0-100.0); MEAN CORPUSCULAR HGB 33.3 pG CALC (26.0-32.0); MEAN CORPUSCULAR HGB CONC 34.5 g/L CALC (32.0-36.0); NEUT# 6.23 thou/uL (1.82-7.42); RED BLOOD COUNT 4.8 mill/uL (4.70-6.10); RED CELL DISTRI WIDTH 12.6 % (11.5-15.5)
[2017-09-15 22:05] LABS: ALBUMIN 4.5 g/dL (3.2-5.0); ALKALINE PHOSPHATASE 97 u/l (38-126); BILIRUBIN, TOTAL 0.8 mg/dL (0.0-1.4); BUN 15 mg/dL (9-20); BUN/CREATININE RATIO 16 (12-20 (CALC)); CARBON DIOXIDE 21 mmol/l (22-30); CHLORIDE 100 mmol/l (95-108); CREATININE 0.9 mg/dL (0.7-1.3); GFR > 60 ML/MIN (>=60 (CALC)); GFR FOR AFR.AMER. > 60 ML/MIN (>=60 (CALC)); POTASSIUM 3.6 mmol/l (3.5-5.1); SGOT/AST 70 u/l (17-59); SGPT/ALT 65 u/l (21-72)
[2017-09-15 22:06] LABS: ANION GAP 24 (6-22 (CALC)); SODIUM 141 mmol/l (137-146); TOTAL PROTEIN 8.6 g/dL (6.3-8.2)
[2017-09-15] MEDS ORDERED: CIPROFLOXACN500 MG PO (23:48)
[2017-09-16 00:59] VITALS: BP 144/95
== END 2017-09-16 00:15 | disposition home or self-care (01) | DRG 696 ==
LOC: ED 20:52
PROVIDERS: Emergency Medicine
PROC: 0T9B70Z Drainage of Bladder with Drainage Device, Via Natural or Artificial Opening (ICD-10-PCS; principal; 2017-09-15)
DX: R33.9 Retention of urine, unspecified (principal); R30.0 Dysuria; R35.0 Frequency of micturition; R39.15 Urgency of urination

== ENCOUNTER 2017-12-09 21:46 | Inpatient (IN) | payer OTHER ==
[~2017-12-09] VITALS: Ht 167.6 cm; Wt 80.3 kg
[~2017-12-09 21:46] MED LIST changes: +CIPROFLOXACN500 MG PO
[2017-12-09] MEDS ORDERED: SERTRALINE HCL100 MG PO (22:01)
[2017-12-09] MEDS ORDERED: TRAZODONE50 MG PO (22:02)
[2017-12-09] MEDS ORDERED: TAMSULOSIN HCL0.4 MG PO (22:03)
[2017-12-09 22:53] LABS: URINE BILIRUBIN - DIPSTICK NEGATIVE (NEGATIVE); URINE BLOOD DIPSTICK NEGATIVE (NEGATIVE); URINE COLOR YELLOW; URINE GLUCOSE - DIPSTICK NEGATIVE (NEGATIVE); URINE KETONE NEGATIVE (NEGATIVE); URINE LEUK ESTERASE NEGATIVE (NEGATIVE); URINE NITRITE - DIPSTICK NEGATIVE (Negative); URINE PROTEIN - DIPSTICK NEGATIVE (NEG-TRACE); URINE SPECIFIC GRAVITY 1.025; URINE UROBILINOGEN - DIPSTICK 0.2 E.U./dL (0.2)
[2017-12-09 22:54] LABS: HEMATOCRIT 46.6 % (39.0-50.0); HEMOGLOBIN 16.7 g/dl (14.0-18.0); IMMATURE GRANULOCYTES 0.4 % (0.0-5.0); MEAN CELL VOLUME 93.8 fL CALC (80.0-100.0); MEAN CORPUSCULAR HGB 33.6 pG CALC (26.0-32.0); MEAN CORPUSCULAR HGB CONC 35.8 g/L CALC (32.0-36.0); NEUT# 12.05 thou/uL (1.82-7.42); RED BLOOD COUNT 4.97 mill/uL (4.70-6.10); RED CELL DISTRI WIDTH 14.1 % (11.5-15.5)
[2017-12-09 22:59] LABS: URINE CLARITY CLEAR
[2017-12-09 23:14] LABS: ALBUMIN 4.3 g/dL (3.2-5.0); AMYLASE 223 u/l (30-110); ANION GAP 23 (6-22 (CALC)); BILIRUBIN, TOTAL 1.4 mg/dL (0.0-1.4); BUN 18 mg/dL (9-20); BUN/CREATININE RATIO 23 (12-20 (CALC)); CARBON DIOXIDE 17 mmol/l (22-30); CHLORIDE 100 mmol/l (95-108); CREATININE 0.8 mg/dL (0.7-1.3); GFR > 60 ML/MIN (>=60 (CALC)); GFR FOR AFR.AMER. > 60 ML/MIN (>=60 (CALC)); LIPASE 1875 u/l (23-300); POTASSIUM 3.8 mmol/l (3.5-5.1); SGPT/ALT 134 u/l (21-72); SODIUM 137 mmol/l (137-146); TOTAL PROTEIN 8.5 g/dL (6.3-8.2)
[2017-12-09 23:18] LABS: ALKALINE PHOSPHATASE 195 u/l (38-126); SGOT/AST 190 u/l (17-59)
[2017-12-09 23:26] LABS: MYOGLOBIN 146 ng/mL (0 - 121)
[2017-12-10] VITALS (7 sets, daily range): BP systolic 129–180; BP diastolic 80–120
[2017-12-11 04:00] VITALS: BP 119/80
[2017-12-11 05:17] LABS: HEMATOCRIT 41.4 % (39.0-50.0); MEAN CELL VOLUME 97.6 fL CALC (80.0-100.0); MEAN CORPUSCULAR HGB 33.7 pG CALC (26.0-32.0); MEAN CORPUSCULAR HGB CONC 34.5 g/L CALC (32.0-36.0); RED BLOOD COUNT 4.24 mill/uL (4.70-6.10); RED CELL DISTRI WIDTH 14.7 % (11.5-15.5)
[2017-12-11 05:18] LABS: BILIRUBIN, TOTAL 1.9 mg/dL (0.0-1.4); BUN 7 mg/dL (9-20); BUN/CREATININE RATIO 12 (12-20 (CALC)); CHLORIDE 102 mmol/l (95-108); CREATININE 0.6 mg/dL (0.7-1.3); GFR > 60 ML/MIN (>=60 (CALC)); GFR FOR AFR.AMER. > 60 ML/MIN (>=60 (CALC)); POTASSIUM 3.3 mmol/l (3.5-5.1); SGOT/AST 68 u/l (17-59); SGPT/ALT 73 u/l (21-72); SODIUM 137 mmol/l (137-146)
[2017-12-11 05:19] LABS: ALKALINE PHOSPHATASE 88 u/l (38-126); ANION GAP 15 (6-22 (CALC)); CARBON DIOXIDE 23 mmol/l (22-30); CHOLESTEROL HDL RATIO 3.6 (<4.4 (CALC)); MAGNESIUM 1.3 mg/dL (1.6-2.3)
[2017-12-11 05:48] LABS: HEMOGLOBIN 14.3 g/dl (14.0-18.0)
[2017-12-11 07:19] VITALS: BP 128/76
[2017-12-11 11:18] VITALS: BP 97/65
[2017-12-11 15:53] VITALS: BP 138/82
[2017-12-11 19:00] VITALS: BP 132/79
[2017-12-12] VITALS: BP 134/82
[2017-12-12 04:26] VITALS: BP 133/80
[2017-12-12 06:00] LABS: MEAN CELL VOLUME 101.4 fL CALC (80.0-100.0); MEAN CORPUSCULAR HGB 34.2 pG CALC (26.0-32.0); MEAN CORPUSCULAR HGB CONC 33.7 g/L CALC (32.0-36.0); RED BLOOD COUNT 3.48 mill/uL (4.70-6.10); RED CELL DISTRI WIDTH 14.8 % (11.5-15.5)
[2017-12-12 06:09] LABS: ANION GAP 9 (6-22 (CALC)); BUN 8 mg/dL (9-20); BUN/CREATININE RATIO 13 (12-20 (CALC)); CARBON DIOXIDE 27 mmol/l (22-30); CHLORIDE 106 mmol/l (95-108); CREATININE 0.6 mg/dL (0.7-1.3); GFR > 60 ML/MIN (>=60 (CALC)); GFR FOR AFR.AMER. > 60 ML/MIN (>=60 (CALC)); POTASSIUM 3.9 mmol/l (3.5-5.1); SODIUM 138 mmol/l (137-146)
[2017-12-12 06:12] LABS: MAGNESIUM 1.7 mg/dL (1.6-2.3)
[2017-12-12 06:41] LABS: HEMATOCRIT 35.3 % (39.0-50.0); HEMOGLOBIN 11.9 g/dl (14.0-18.0)
[2017-12-12 06:59] LABS: AMYLASE 88 u/l (30-110); LIPASE 714 u/l (23-300)
[2017-12-12 10:57] VITALS: BP 157/73
[2017-12-12] MEDS ORDERED: LIBRIUM25 M1 PO (11:52)
[2017-12-12] MEDS ORDERED: HYDROCO/APAP1 TA9 PO (11:52)
== END 2017-12-12 12:35 | disposition home or self-care (01) | DRG 439 ==
LOC: ED 21:46 → ED-I 12-10 01:27 → ED 12-10 01:59 → MS2 12-10 02:00
PROVIDERS: Emergency Medicine; Internal Medicine; Nurse Practitioner Family; ADMIT Internal Medicine; ATTEND Internal Medicine
DX: K85.20 Alcohol induced acute pancreatitis without necrosis or infection (principal); E87.2 Acidosis; F10.239 Alcohol dependence with withdrawal, unspecified; K86.0 Alcohol-induced chronic pancreatitis; K70.10 Alcoholic hepatitis without ascites; E11.9 Type 2 diabetes mellitus without complications; I10 Essential (primary) hypertension; E78.5 Hyperlipidemia, unspecified; E87.6 Hypokalemia; E83.42 Hypomagnesemia; F41.9 Anxiety disorder, unspecified; Z87.891 Personal history of nicotine dependence; Z79.84 Long term (current) use of oral hypoglycemic drugs
CPT/HCPCS: J3475; S0164

== ENCOUNTER 2018-11-24 19:25 | Emergency (ER) | payer OTHER ==
[~2018-11-24] VITALS: Ht 167.6 cm; Wt 86.0 kg
[~2018-11-24 19:25] MED LIST changes: +SERTRALINE HCL100 MG PO; +TAMSULOSIN HCL0.4 MG PO; +TRAZODONE50 MG PO
[2018-11-24 20:10] LABS: IMMATURE GRANULOCYTES 0.5 % (0.0-5.0); MEAN CELL VOLUME 99.2 fL CALC (80.0-100.0); MEAN CORPUSCULAR HGB 33.4 pG CALC (26.0-32.0); MEAN CORPUSCULAR HGB CONC 33.7 g/L CALC (32.0-36.0); NEUT# 5.25 thou/uL (1.82-7.42); RED BLOOD COUNT 4.91 mill/uL (4.70-6.10)
[2018-11-24 20:11] LABS: HEMATOCRIT 48.7 % (39.0-50.0); HEMOGLOBIN 16.4 g/dl (14.0-18.0)
[2018-11-24 20:13] LABS: URINE BILIRUBIN - DIPSTICK NEGATIVE (NEGATIVE); URINE BLOOD DIPSTICK NEGATIVE (NEGATIVE); URINE COLOR YELLOW; URINE GLUCOSE - DIPSTICK NEGATIVE (NEGATIVE); URINE KETONE NEGATIVE (NEGATIVE); URINE LEUK ESTERASE NEGATIVE (NEGATIVE); URINE NITRITE - DIPSTICK NEGATIVE (Negative); URINE PROTEIN - DIPSTICK TRACE mg/dL (NEG-TRACE); URINE SPECIFIC GRAVITY 1.025; URINE UROBILINOGEN - DIPSTICK 0.2 E.U./dL (0.2)
[2018-11-24] MEDS ORDERED: MULTI VIT PO (20:15)
[2018-11-24] MEDS ORDERED: ELIQUIS5 MG PO (20:16)
[2018-11-24 20:26] LABS: ALKALINE PHOSPHATASE 109 u/l (38-126); AMYLASE 125 u/l (30-110); ANION GAP 21 (6-22 (CALC)); BUN 13 mg/dL (9-20); BUN/CREATININE RATIO 16 (12-20 (CALC)); CARBON DIOXIDE 23 mmol/l (22-30); CHLORIDE 102 mmol/l (95-108); CREATININE 0.8 mg/dL (0.7-1.3); GFR > 60 ML/MIN (>=60 (CALC)); GFR FOR AFR.AMER. > 60 ML/MIN (>=60 (CALC)); LIPASE 31 u/l (23-300); POTASSIUM 3.6 mmol/l (3.5-5.1); SGOT/AST 59 u/l (17-59); SODIUM 141 mmol/l (137-146)
[2018-11-24 20:28] LABS: ALBUMIN 4.2 g/dL (3.2-5.0); BILIRUBIN, TOTAL 0.7 mg/dL (0.0-1.4); TOTAL PROTEIN 7.8 g/dL (6.3-8.2)
[2018-11-24 20:38] LABS: MYOGLOBIN 89 ng/mL (0 - 121)
[2018-11-24 23:00] VITALS: BP 148/94
== END 2018-11-24 23:48 | disposition short-term general hospital (02) | DRG 392 ==
LOC: ED 19:25
PROVIDERS: Emergency Medicine
DX: R10.13 Epigastric pain (principal); R94.31 Abnormal electrocardiogram [ECG] [EKG]; E87.2 Acidosis; E11.9 Type 2 diabetes mellitus without complications; I10 Essential (primary) hypertension
CPT/HCPCS: Q9967

== ENCOUNTER 2019-02-22 08:50 | Emergency (ER) | payer OTHER ==
[~2019-02-22] VITALS: Ht 167.6 cm; Wt 81.0 kg
[~2019-02-22 08:50] MED LIST changes: +ELIQUIS5 MG PO; +MULTI VIT PO
[2019-02-22] MEDS ORDERED: MECLIZINE25 MG PO (09:24)
[2019-02-22] MEDS ORDERED: GABAPENTIN300 M2 PO (09:26)
[2019-02-22] MEDS ORDERED: LIPITOR80 M1 PO (09:28)
[2019-02-22] MEDS ORDERED: QUETIAPINE FUMA25 MG PO (09:28)
[2019-02-22] MEDS ORDERED: ELIQUIS5 MG PO (09:29)
[2019-02-22] MEDS ORDERED: HYDROCO/APAP1 TA9 PO (11:11)
[2019-02-22 11:21] VITALS: BP 110/54
== END 2019-02-22 11:20 | disposition home or self-care (01) | DRG 563 ==
LOC: ED 08:50
PROC: 2W3QX1Z Immobilization of Right Lower Leg using Splint (ICD-10-PCS; principal; 2019-02-22)
DX: S82.831A Other fracture of upper and lower end of right fibula, initial encounter for closed fracture (principal); S92.321A Displaced fracture of second metatarsal bone, right foot, initial encounter for closed fracture; S92.331A Displaced fracture of third metatarsal bone, right foot, initial encounter for closed fracture; E11.9 Type 2 diabetes mellitus without complications; I10 Essential (primary) hypertension; W01.0XXA Fall on same level from slipping, tripping and stumbling without subsequent striking against object, initial encounter; Y92.009 Unspecified place in unspecified non-institutional (private) residence as the place of occurrence of the external cause

== ENCOUNTER 2019-11-17 22:17 | Emergency (ER) | payer OTHER ==
[~2019-11-17] VITALS: Ht 167.6 cm; Wt 72.7 kg
[~2019-11-17 22:17] MED LIST changes: +GABAPENTIN300 M2 PO; +LIPITOR80 M1 PO; +MECLIZINE25 MG PO; +QUETIAPINE FUMA25 MG PO
[2019-11-18 00:35] VITALS: BP 104/67
== END 2019-11-18 01:25 | disposition home or self-care (01) | DRG 563 ==
LOC: ED 22:17
PROC: 2W3QX1Z Immobilization of Right Lower Leg using Splint (ICD-10-PCS; principal; 2019-11-17)
DX: S82.61XA Displaced fracture of lateral malleolus of right fibula, initial encounter for closed fracture (principal); E11.9 Type 2 diabetes mellitus without complications; I10 Essential (primary) hypertension; X50.0XXA Overexertion from strenuous movement or load, initial encounter; Y92.009 Unspecified place in unspecified non-institutional (private) residence as the place of occurrence of the external cause; Z79.84 Long term (current) use of oral hypoglycemic drugs

== ENCOUNTER 2020-04-11 15:04 | Emergency (ER) | payer OTHER ==
[~2020-04-11] VITALS: Ht 167.6 cm; Wt 72.7 kg
[2020-04-11 18:03] LABS: IMMATURE GRANULOCYTES 0.5 % (0.0-5.0); MEAN CELL VOLUME 94.7 fL CALC (80.0-100.0); MEAN CORPUSCULAR HGB 28.3 pG CALC (26.0-32.0); MEAN CORPUSCULAR HGB CONC 29.9 g/dL CAL (32.0-36.0); NEUT# 13.11 thou/uL (1.82-7.42); RED BLOOD COUNT 1.87 mill/uL (4.70-6.10); RED CELL DISTRI WIDTH 16.3 % (11.5-15.5)
[2020-04-11 18:06] LABS: HEMATOCRIT 17.7 % (39.0-50.0); HEMOGLOBIN 5.3 g/dl (14.0-18.0)
[2020-04-11 18:26] LABS: ALBUMIN 3.4 g/dL (3.2-5.0); ALKALINE PHOSPHATASE 88 u/l (38-126); ANION GAP 15 (6-22 (CALC)); BUN 35 mg/dL (8-23); BUN/CREATININE RATIO 21 (12-20 (CALC)); CARBON DIOXIDE 19 mmol/l (22-30); CHLORIDE 106 mmol/l (95-108); CREATININE 1.7 mg/dL (0.7-1.3); GFR 41 ML/MIN (>=60 (CALC)); GFR FOR AFR.AMER. 50 ML/MIN (>=60 (CALC)); POTASSIUM 3.8 mmol/l (3.5-5.1); SGOT/AST 63 u/l (19-48); SODIUM 136 mmol/l (137-146); TOTAL PROTEIN 6.5 g/dL (6.3-8.2)
[2020-04-11 18:29] LABS: BILIRUBIN, TOTAL 0.4 mg/dL (0.0-1.4)
[2020-04-11 19:36] LABS: ACT PARTIAL THROMBO TIME 21.2 SECONDS (20.0-32.5); INTERNATIONAL NORMALIZED RATIO 1.1 RATIO (0.7-1.3)
[2020-04-11 20:05] VITALS: BP 106/74
[2020-04-11 20:28] VITALS: BP 106/73
[2020-04-11 21:00] VITALS: BP 125/78
[2020-04-11 21:35] VITALS: BP 125/78
== END 2020-04-11 21:25 | disposition short-term general hospital (02) | DRG 379 ==
LOC: ED 15:04
PROVIDERS: Family Medicine
PROC: 30233N1 Transfusion of Nonautologous Red Blood Cells into Peripheral Vein, Percutaneous Approach (ICD-10-PCS; principal; 2020-04-11)
DX: K92.0 Hematemesis (principal); D64.9 Anemia, unspecified; E11.9 Type 2 diabetes mellitus without complications; I10 Essential (primary) hypertension; E78.5 Hyperlipidemia, unspecified; Z79.84 Long term (current) use of oral hypoglycemic drugs; Z86.711 Personal history of pulmonary embolism; Z79.01 Long term (current) use of anticoagulants
CPT/HCPCS: P9016; Q9967; S0164

== ENCOUNTER 2020-07-04 21:12 | Emergency (ER) | payer OTHER ==
[~2020-07-04] VITALS: Ht 165.1 cm; Wt 72.0 kg
[2020-07-04 21:30] VITALS: BP 111/67
[2020-07-04] MEDS ORDERED: [UNRECOGNIZED DRUG - CODE] PO (21:41)
[2020-07-04] MEDS ORDERED: MECLIZINE25 MG PO (21:50)
[2020-07-04] MEDS ORDERED: ULTRAM50 MG PO (23:03)
== END 2020-07-04 23:55 | disposition home or self-care (01) | DRG 563 ==
LOC: ED 21:12
DX: S83.91XA Sprain of unspecified site of right knee, initial encounter (principal); E11.9 Type 2 diabetes mellitus without complications; I10 Essential (primary) hypertension; K21.9 Gastro-esophageal reflux disease without esophagitis; E78.5 Hyperlipidemia, unspecified; X50.0XXA Overexertion from strenuous movement or load, initial encounter; Z87.11 Personal history of peptic ulcer disease; Z79.84 Long term (current) use of oral hypoglycemic drugs
CPT/HCPCS: L1830

== ENCOUNTER 2021-09-06 13:43 | Emergency (ER) | payer OTHER ==
[2021-09-06] VITALS (13 sets, daily range): BP systolic 96–151; BP diastolic 59–118
[~2021-09-06] VITALS: Ht 165.1 cm; Wt 66.4 kg
[~2021-09-06 13:43] MED LIST changes: +ULTRAM50 MG PO; +[UNRECOGNIZED DRUG - CODE] PO
[2021-09-06 14:21] LABS: HEMATOCRIT 38.3 % (39.0-50.0); HEMOGLOBIN 12.2 g/dl (14.0-18.0); IMMATURE GRANULOCYTES 0.1 % (0.0-5.0); MEAN CELL VOLUME 87.8 fL CALC (80.0-100.0); MEAN CORPUSCULAR HGB CONC 31.9 g/dL CAL (32.0-36.0); NEUT# 5.23 thou/uL (1.82-7.42); RED BLOOD COUNT 4.36 mill/uL (4.70-6.10)
[2021-09-06 14:38] LABS: ALKALINE PHOSPHATASE 93 u/l (38-126); AMYLASE 84 u/l (30-110); ANION GAP 25 (6-22 (CALC)); CARBON DIOXIDE 22 mmol/l (22-30); CHLORIDE 99 mmol/l (95-108); LIPASE 24 u/l (23-300); POTASSIUM 3.8 mmol/l (3.5-5.1); SGOT/AST 49 u/l (19-48); SODIUM 142 mmol/l (137-146); TOTAL PROTEIN 7.6 g/dL (6.3-8.2)
[2021-09-06 14:41] LABS: ALBUMIN 4.3 g/dL (3.2-5.0); BILIRUBIN, TOTAL 0.9 mg/dL (0.0-1.4); BUN 9 mg/dL (8-23); BUN/CREATININE RATIO 15 (12-20 (CALC)); CREATININE 0.6 mg/dL (0.7-1.3); GFR > 60 ML/MIN (>=60 (CALC)); GFR FOR AFR.AMER. > 60 ML/MIN (>=60 (CALC))
[2021-09-06 15:01] LABS: ETHYL ALCOHOL 373 mg/dl (0-30)
[2021-09-06] MEDS ORDERED: PROTONIX40 M2 PO ×2 (15:02→19:38)
[2021-09-06 15:21] LABS: MYOGLOBIN 52 ng/mL (0 - 121)
[2021-09-06] MEDS ORDERED: ONDANSETRON4 MG PO (19:38)
== END 2021-09-06 19:55 | disposition home or self-care (01) | DRG 392 ==
LOC: ED 13:43
PROVIDERS: Nurse Practitioner
DX: K29.20 Alcoholic gastritis without bleeding (principal); F10.129 Alcohol abuse with intoxication, unspecified; E11.9 Type 2 diabetes mellitus without complications; I10 Essential (primary) hypertension; E78.5 Hyperlipidemia, unspecified; F32.A Depression, unspecified; F41.9 Anxiety disorder, unspecified; Y90.8 Blood alcohol level of 240 mg/100 ml or more; Z87.11 Personal history of peptic ulcer disease; Z79.84 Long term (current) use of oral hypoglycemic drugs
CPT/HCPCS: J2060; Q9967; S0164

== ENCOUNTER 2021-10-05 12:45 | Emergency (ER) | payer OTHER ==
[~2021-10-05] VITALS: Ht 165.1 cm; Wt 74.0 kg
[~2021-10-05 12:45] MED LIST changes: +ONDANSETRON4 MG PO
[2021-10-05 12:49] VITALS: BP 113/75
[2021-10-05 13:00] VITALS: BP 105/72
[2021-10-05 13:15] VITALS: BP 100/73
[2021-10-05 13:23] VITALS: BP 100/73
== END 2021-10-05 13:24 | disposition left against medical advice (07) | DRG 204 ==
LOC: ED 12:45
DX: R06.02 Shortness of breath (principal); I10 Essential (primary) hypertension; E11.9 Type 2 diabetes mellitus without complications; E78.5 Hyperlipidemia, unspecified; Z87.11 Personal history of peptic ulcer disease; Z79.84 Long term (current) use of oral hypoglycemic drugs; Z91.19 Patient's noncompliance with other medical treatment and regimen

== ENCOUNTER 2021-11-13 15:26 | Emergency (ER) | payer OTHER ==
[~2021-11-13] VITALS: Ht 165.1 cm; Wt 57.0 kg
[2021-11-13] VITALS (13 sets, daily range): BP systolic 147–163; BP diastolic 102–115
[2021-11-13 15:47] LABS: HEMATOCRIT 35.4 % (39.0-50.0); HEMOGLOBIN 11.6 g/dl (14.0-18.0); IMMATURE GRANULOCYTES 0.4 % (0.0-5.0); MEAN CELL VOLUME 91.5 fL CALC (80.0-100.0); MEAN CORPUSCULAR HGB CONC 32.8 g/dL CAL (32.0-36.0); NEUT# 4.04 thou/uL (1.82-7.42); RED BLOOD COUNT 3.87 mill/uL (4.70-6.10); RED CELL DISTRI WIDTH 17.4 % (11.5-15.5)
[2021-11-13 15:55] LABS: GFR FOR AFR.AMER. > 60 ML/MIN (>=60 (CALC)); GFR OTHER RACES > 60 ML/MIN (>=60 (CALC))
[2021-11-13 18:26] LABS: ALBUMIN 4.2 g/dL (3.2-5.0); ALKALINE PHOSPHATASE 94 u/l (38-126); BILIRUBIN, TOTAL 0.8 mg/dL (0.0-1.4); BUN 10 mg/dL (8-23); BUN/CREATININE RATIO 17 (12-20 (CALC)); CHLORIDE 93 mmol/l (95-108); CREATININE 0.6 mg/dL (0.7-1.3); GFR FOR AFR.AMER. > 60 ML/MIN (>=60 (CALC)); GFR OTHER RACES > 60 ML/MIN (>=60 (CALC)); LIPASE 80 u/l (23-300); POTASSIUM 3.4 mmol/l (3.5-5.1); SGOT/AST 53 u/l (19-48); TOTAL PROTEIN 7.2 g/dL (6.3-8.2)
[2021-11-13 18:27] LABS: URINE BILIRUBIN - DIPSTICK NEGATIVE (NEGATIVE); URINE BLOOD DIPSTICK NEGATIVE (NEGATIVE); URINE COLOR YELLOW; URINE GLUCOSE - DIPSTICK NEGATIVE (NEGATIVE); URINE KETONE 15 mg/dL (NEGATIVE); URINE LEUK ESTERASE NEGATIVE (NEGATIVE); URINE PROTEIN - DIPSTICK NEGATIVE (NEG-TRACE); URINE SPECIFIC GRAVITY 1.015; URINE UROBILINOGEN - DIPSTICK 0.2 E.U./dL (0.2)
[2021-11-13 18:27] LABS: ANION GAP 23 (6-22 (CALC)); CARBON DIOXIDE 17 mmol/l (22-30); SODIUM 130 mmol/l (137-146)
[2021-11-13 18:31] LABS: URINE NITRITE - DIPSTICK NEGATIVE (Negative)
[2021-11-13] MEDS ORDERED: PROTONIX40 M2 PO (21:57)
[2021-11-13] MEDS ORDERED: TRAMADOL HCL50 MG PO (21:57)
== END 2021-11-13 23:20 | disposition home or self-care (01) | DRG 392 ==
LOC: ED 15:26
PROVIDERS: Family Medicine
DX: K29.80 Duodenitis without bleeding (principal); K29.20 Alcoholic gastritis without bleeding; F10.10 Alcohol abuse, uncomplicated; I10 Essential (primary) hypertension; E11.9 Type 2 diabetes mellitus without complications; E78.5 Hyperlipidemia, unspecified; Z87.11 Personal history of peptic ulcer disease; Z79.84 Long term (current) use of oral hypoglycemic drugs; Z20.822 Contact with and (suspected) exposure to COVID-19
CPT/HCPCS: J2060; Q9967; S0164

== ENCOUNTER 2022-01-07 04:22 | Emergency (ER) | payer OTHER ==
[~2022-01-07] VITALS: Ht 165.1 cm; Wt 59.9 kg
[~2022-01-07 04:22] MED LIST changes: +TRAMADOL HCL50 MG PO
[2022-01-07 05:16] LABS: HEMATOCRIT 35.4 % (39.0-50.0); HEMOGLOBIN 11.3 g/dl (14.0-18.0); IMMATURE GRANULOCYTES 0.1 % (0.0-5.0); MEAN CELL VOLUME 87.6 fL CALC (80.0-100.0); MEAN CORPUSCULAR HGB CONC 31.9 g/dL CAL (32.0-36.0); NEUT# 5.52 thou/uL (1.82-7.42); RED BLOOD COUNT 4.04 mill/uL (4.70-6.10); RED CELL DISTRI WIDTH 18.6 % (11.5-15.5)
[2022-01-07 05:20] LABS: URINE BILIRUBIN - DIPSTICK NEGATIVE (NEGATIVE); URINE BLOOD DIPSTICK NEGATIVE (NEGATIVE); URINE COLOR YELLOW; URINE GLUCOSE - DIPSTICK NEGATIVE (NEGATIVE); URINE KETONE 15 mg/dL (NEGATIVE); URINE LEUK ESTERASE NEGATIVE (NEGATIVE); URINE PH 5.5 (4.5-8.0); URINE PROTEIN - DIPSTICK 30 mg/dL (NEG-TRACE); URINE SPECIFIC GRAVITY 1.025
[2022-01-07 05:22] LABS: URINE NITRITE - DIPSTICK NEGATIVE (Negative)
[2022-01-07 05:32] LABS: ALBUMIN 4.3 g/dL (3.2-5.0); ALKALINE PHOSPHATASE 118 u/l (38-126); BILIRUBIN, TOTAL 0.6 mg/dL (0.0-1.4); BUN 17 mg/dL (8-23); BUN/CREATININE RATIO 27 (12-20 (CALC)); CHLORIDE 98 mmol/l (95-108); CREATININE 0.6 mg/dL (0.7-1.3); ETHYL ALCOHOL 203 mg/dl (0-30); GFR FOR AFR.AMER. > 60 ML/MIN (>=60 (CALC)); GFR OTHER RACES > 60 ML/MIN (>=60 (CALC)); SGOT/AST 40 u/l (19-48); TOTAL PROTEIN 7.6 g/dL (6.3-8.2)
[2022-01-07 05:43] LABS: ANION GAP 22 (6-22 (CALC)); CARBON DIOXIDE 21 mmol/l (22-30); POTASSIUM 4.2 mmol/l (3.5-5.1); SODIUM 137 mmol/l (137-146)
[2022-01-07 05:44] LABS: URINE RBC 0-2 RBC/hpf (0-5); URINE SQUAMOUS EPITHELIAL CELL FEW EPI/hpf (0-FEW); URINE WBC 0-2 WBC/hpf (0-5)
[2022-01-07] MEDS ORDERED: ACAMPROSATE CA333 MG PO (06:26)
[2022-01-07] MEDS ORDERED: MAGNESIUM OXID400 M1 PO (06:26)
[2022-01-07 08:05] VITALS: BP 128/81
[2022-01-07 08:30] VITALS: BP 116/84
[2022-01-07 09:00] VITALS: BP 122/83
[2022-01-07 09:41] VITALS: BP 122/83
== END 2022-01-07 09:42 | disposition home or self-care (01) | DRG 897 ==
LOC: ED 04:22
PROVIDERS: Family Medicine
DX: F10.129 Alcohol abuse with intoxication, unspecified (principal); E83.42 Hypomagnesemia; I10 Essential (primary) hypertension; E11.9 Type 2 diabetes mellitus without complications; E78.5 Hyperlipidemia, unspecified; Z87.11 Personal history of peptic ulcer disease; Z79.84 Long term (current) use of oral hypoglycemic drugs
CPT/HCPCS: J3475

== ENCOUNTER 2022-01-11 20:07 | Emergency (ER) | payer OTHER ==
[~2022-01-11] VITALS: Ht 165.1 cm; Wt 68.0 kg
[~2022-01-11 20:07] MED LIST changes: +ACAMPROSATE CA333 MG PO; +MAGNESIUM OXID400 M1 PO
[2022-01-11 20:48] LABS: URINE BILIRUBIN - DIPSTICK NEGATIVE (NEGATIVE); URINE BLOOD DIPSTICK NEGATIVE (NEGATIVE); URINE COLOR YELLOW; URINE GLUCOSE - DIPSTICK NEGATIVE (NEGATIVE); URINE KETONE 15 mg/dL (NEGATIVE); URINE LEUK ESTERASE NEGATIVE (NEGATIVE); URINE PROTEIN - DIPSTICK NEGATIVE (NEG-TRACE); URINE SPECIFIC GRAVITY <=1.005; URINE UROBILINOGEN - DIPSTICK 0.2 E.U./dL (0.2)
[2022-01-11 20:49] LABS: URINE NITRITE - DIPSTICK NEGATIVE (Negative)
[2022-01-11 20:53] LABS: HEMOGLOBIN 10.2 g/dl (14.0-18.0); IMMATURE GRANULOCYTES 0.2 % (0.0-5.0); MEAN CELL VOLUME 87.1 fL CALC (80.0-100.0); MEAN CORPUSCULAR HGB 28.7 pG CALC (26.0-32.0); MEAN CORPUSCULAR HGB CONC 32.9 g/dL CAL (32.0-36.0); NEUT# 4.28 thou/uL (1.82-7.42); RED BLOOD COUNT 3.56 mill/uL (4.70-6.10); RED CELL DISTRI WIDTH 18.6 % (11.5-15.5)
[2022-01-11 21:00] LABS: ALBUMIN 4.3 g/dL (3.2-5.0); ALKALINE PHOSPHATASE 91 u/l (38-126); ANION GAP 28 (6-22 (CALC)); BILIRUBIN, TOTAL 0.8 mg/dL (0.0-1.4); BUN 15 mg/dL (8-23); BUN/CREATININE RATIO 21 (12-20 (CALC)); CARBON DIOXIDE 17 mmol/l (22-30); CHLORIDE 95 mmol/l (95-108); CREATININE 0.7 mg/dL (0.7-1.3); ETHYL ALCOHOL 292 mg/dl (0-30); GFR FOR AFR.AMER. > 60 ML/MIN (>=60 (CALC)); GFR OTHER RACES > 60 ML/MIN (>=60 (CALC)); POTASSIUM 4.5 mmol/l (3.5-5.1); SGOT/AST 65 u/l (19-48); SODIUM 135 mmol/l (137-146); TOTAL PROTEIN 7.2 g/dL (6.3-8.2)
[2022-01-11 21:11] LABS: MYOGLOBIN 229 ng/mL (0 - 121)
[2022-01-11 23:19] VITALS: BP 111/71
== END 2022-01-12 08:08 | disposition home or self-care (01) | DRG 897 ==
LOC: ED 20:07
PROVIDERS: Emergency Medicine
DX: F10.129 Alcohol abuse with intoxication, unspecified (principal); S09.90XA Unspecified injury of head, initial encounter; I10 Essential (primary) hypertension; E11.9 Type 2 diabetes mellitus without complications; K21.9 Gastro-esophageal reflux disease without esophagitis; E78.5 Hyperlipidemia, unspecified; Y90.6 Blood alcohol level of 120-199 mg/100 ml; W19.XXXA Unspecified fall, initial encounter; Z87.11 Personal history of peptic ulcer disease; Z79.84 Long term (current) use of oral hypoglycemic drugs
CPT/HCPCS: J2060

== ENCOUNTER 2022-01-22 00:10 | Emergency (ER) | payer OTHER ==
[2022-01-22] VITALS (31 sets, daily range): BP systolic 112–152; BP diastolic 79–96
[~2022-01-22] VITALS: Ht 165.1 cm; Wt 61.1 kg
[~2022-01-22 00:10] MED LIST changes: +DILT-XR180 MG PO; -DILTIAZEM90 M1 PO; +METFORMIN500 M2 PO
[2022-01-22 00:40] LABS: URINE BILIRUBIN - DIPSTICK NEGATIVE (NEGATIVE); URINE BLOOD DIPSTICK NEGATIVE (NEGATIVE); URINE COLOR YELLOW; URINE GLUCOSE - DIPSTICK NEGATIVE (NEGATIVE); URINE KETONE 40 mg/dL (NEGATIVE); URINE LEUK ESTERASE NEGATIVE (NEGATIVE); URINE PROTEIN - DIPSTICK NEGATIVE (NEG-TRACE); URINE SPECIFIC GRAVITY 1.015; URINE UROBILINOGEN - DIPSTICK 0.2 E.U./dL (0.2)
[2022-01-22 00:40] LABS: HEMATOCRIT 34.3 % (39.0-50.0); HEMOGLOBIN 10.8 g/dl (14.0-18.0); IMMATURE GRANULOCYTES 0.2 % (0.0-5.0); MEAN CELL VOLUME 90.7 fL CALC (80.0-100.0); MEAN CORPUSCULAR HGB 28.6 pG CALC (26.0-32.0); MEAN CORPUSCULAR HGB CONC 31.5 g/dL CAL (32.0-36.0); NEUT# 2.63 thou/uL (1.82-7.42); RED BLOOD COUNT 3.78 mill/uL (4.70-6.10); RED CELL DISTRI WIDTH 19.9 % (11.5-15.5)
[2022-01-22 00:44] LABS: URINE NITRITE - DIPSTICK NEGATIVE (Negative)
[2022-01-22 01:20] LABS: ALBUMIN 4.4 g/dL (3.2-5.0); ALKALINE PHOSPHATASE 99 u/l (38-126); AMYLASE 309 u/l (30-110); BILIRUBIN, TOTAL 0.6 mg/dL (0.0-1.4); BUN 14 mg/dL (8-23); BUN/CREATININE RATIO 27 (12-20 (CALC)); CHLORIDE 103 mmol/l (95-108); CREATININE 0.5 mg/dL (0.7-1.3); GFR FOR AFR.AMER. > 60 ML/MIN (>=60 (CALC)); GFR OTHER RACES > 60 ML/MIN (>=60 (CALC)); LIPASE 44 u/l (23-300); SGOT/AST 36 u/l (19-48); TOTAL PROTEIN 7.8 g/dL (6.3-8.2)
[2022-01-22 01:30] LABS: MYOGLOBIN 31 ng/mL (0 - 121)
[2022-01-22 01:32] LABS: POTASSIUM 4.1 mmol/l (3.5-5.1)
[2022-01-22 01:33] LABS: ANION GAP 22 (6-22 (CALC)); CARBON DIOXIDE 23 mmol/l (22-30); SODIUM 144 mmol/l (137-146)
[2022-01-22 01:34] LABS: ETHYL ALCOHOL 343 mg/dl (0-30)
== END 2022-01-22 08:33 | disposition home or self-care (01) | DRG 897 ==
LOC: ED 00:10
PROVIDERS: Emergency Medicine
DX: F10.129 Alcohol abuse with intoxication, unspecified (principal); I10 Essential (primary) hypertension; E11.9 Type 2 diabetes mellitus without complications; K21.9 Gastro-esophageal reflux disease without esophagitis; E78.5 Hyperlipidemia, unspecified; Z87.11 Personal history of peptic ulcer disease; Z79.84 Long term (current) use of oral hypoglycemic drugs; Z20.822 Contact with and (suspected) exposure to COVID-19
CPT/HCPCS: Q9967

== ENCOUNTER 2022-01-23 02:39 | Emergency (ER) | payer OTHER ==
[~2022-01-23] VITALS: Ht 165.1 cm; Wt 61.1 kg
[2022-01-23] VITALS (37 sets, daily range): BP systolic 107–150; BP diastolic 68–121
[2022-01-23 03:41] LABS: URINE BILIRUBIN - DIPSTICK NEGATIVE (NEGATIVE); URINE BLOOD DIPSTICK NEGATIVE (NEGATIVE); URINE COLOR YELLOW; URINE GLUCOSE - DIPSTICK >=1000 mg/dL (NEGATIVE); URINE KETONE NEGATIVE (NEGATIVE); URINE LEUK ESTERASE NEGATIVE (NEGATIVE); URINE PROTEIN - DIPSTICK NEGATIVE (NEG-TRACE); URINE SPECIFIC GRAVITY <=1.005
[2022-01-23 03:42] LABS: HEMATOCRIT 33.5 % (39.0-50.0); HEMOGLOBIN 10.8 g/dl (14.0-18.0); IMMATURE GRANULOCYTES 0.2 % (0.0-5.0); MEAN CELL VOLUME 89.6 fL CALC (80.0-100.0); MEAN CORPUSCULAR HGB 28.9 pG CALC (26.0-32.0); MEAN CORPUSCULAR HGB CONC 32.2 g/dL CAL (32.0-36.0); NEUT# 2.99 thou/uL (1.82-7.42); RED BLOOD COUNT 3.74 mill/uL (4.70-6.10); RED CELL DISTRI WIDTH 20.2 % (11.5-15.5); URINE NITRITE - DIPSTICK NEGATIVE (Negative)
[2022-01-23 03:57] LABS: ALBUMIN 4.1 g/dL (3.2-5.0); ALKALINE PHOSPHATASE 102 u/l (38-126); ANION GAP 18 (6-22 (CALC)); BILIRUBIN, TOTAL 0.6 mg/dL (0.0-1.4); BUN 6 mg/dL (8-23); BUN/CREATININE RATIO 14 (12-20 (CALC)); CARBON DIOXIDE 25 mmol/l (22-30); CHLORIDE 108 mmol/l (95-108); CREATININE 0.4 mg/dL (0.7-1.3); GFR FOR AFR.AMER. > 60 ML/MIN (>=60 (CALC)); GFR OTHER RACES > 60 ML/MIN (>=60 (CALC)); POTASSIUM 3.7 mmol/l (3.5-5.1); SGOT/AST 30 u/l (19-48); SODIUM 147 mmol/l (137-146); TOTAL PROTEIN 7.1 g/dL (6.3-8.2)
[2022-01-23 04:07] LABS: ETHYL ALCOHOL 368 mg/dl (0-30)
== END 2022-01-23 12:07 | disposition home or self-care (01) | DRG 897 ==
LOC: ED 02:39
PROVIDERS: Emergency Medicine
PROC: 0T9B70Z Drainage of Bladder with Drainage Device, Via Natural or Artificial Opening (ICD-10-PCS; principal; 2022-01-23)
DX: F10.129 Alcohol abuse with intoxication, unspecified (principal); I10 Essential (primary) hypertension; E11.9 Type 2 diabetes mellitus without complications; K21.9 Gastro-esophageal reflux disease without esophagitis; E78.5 Hyperlipidemia, unspecified; Z87.11 Personal history of peptic ulcer disease; Z79.84 Long term (current) use of oral hypoglycemic drugs

== ENCOUNTER 2022-01-25 06:49 | Inpatient (IN) | payer OTHER ==
[~2022-01-25] VITALS: Ht 165.1 cm; Wt 64.0 kg
[2022-01-25] VITALS (9 sets, daily range): BP systolic 119–140; BP diastolic 83–95
--- NOTE | 2022-01-25 07:07 | NUR ---
BLADDER SCAN DONE ON PATIENT GREATER THAN 999ml's.
[2022-01-25 07:19] LABS: HEMATOCRIT 30.4 % (39.0-50.0); HEMOGLOBIN 9.8 g/dl (14.0-18.0); IMMATURE GRANULOCYTES 0.2 % (0.0-5.0); MEAN CELL VOLUME 89.4 fL CALC (80.0-100.0); MEAN CORPUSCULAR HGB 28.8 pG CALC (26.0-32.0); MEAN CORPUSCULAR HGB CONC 32.2 g/dL CAL (32.0-36.0); NEUT# 4.41 thou/uL (1.82-7.42); RED BLOOD COUNT 3.4 mill/uL (4.70-6.10); RED CELL DISTRI WIDTH 19.9 % (11.5-15.5); URINE BILIRUBIN - DIPSTICK NEGATIVE (NEGATIVE); URINE BLOOD DIPSTICK NEGATIVE (NEGATIVE); URINE COLOR YELLOW; URINE GLUCOSE - DIPSTICK 100 mg/dL (NEGATIVE); URINE KETONE NEGATIVE (NEGATIVE); URINE LEUK ESTERASE NEGATIVE (NEGATIVE); URINE PH 5.5 (4.5-8.0); URINE PROTEIN - DIPSTICK NEGATIVE (NEG-TRACE)
[2022-01-25 07:24] LABS: URINE NITRITE - DIPSTICK NEGATIVE (Negative)
[2022-01-25 07:53] LABS: ALKALINE PHOSPHATASE 93 u/l (38-126); AMYLASE 112 u/l (30-110); ANION GAP 21 (6-22 (CALC)); BILIRUBIN, TOTAL 0.7 mg/dL (0.0-1.4); BUN 6 mg/dL (8-23); BUN/CREATININE RATIO 12 (12-20 (CALC)); CARBON DIOXIDE 24 mmol/l (22-30); CHLORIDE 101 mmol/l (95-108); CREATININE 0.6 mg/dL (0.7-1.3); GFR FOR AFR.AMER. > 60 ML/MIN (>=60 (CALC)); GFR OTHER RACES > 60 ML/MIN (>=60 (CALC)); LIPASE 15 u/l (23-300); SGOT/AST 34 u/l (19-48); SODIUM 142 mmol/l (137-146); TOTAL PROTEIN 7.1 g/dL (6.3-8.2)
[2022-01-25 08:02] LABS: MYOGLOBIN 88 ng/mL (0 - 121)
--- NOTE | 2022-01-25 08:18 | NUR ---
Reassessment of patient completed. No distress noted.
--- NOTE | 2022-01-25 09:23 | NUR ---
Reassessment of patient completed. No distress noted.
--- NOTE | 2022-01-25 10:30 | NUR ---
PT TRANSPORTED TO FLOOR AT THIS TIME
--- NOTE | 2022-01-25 10:55 | NUR ---
PATIENT HANDOFF RECEIVED FROM TAVON COLLINS RN.
--- NOTE | 2022-01-25 10:55 | NUR ---
PT ARRIVED TO MS VIA STRETCHER, ACCOMPANIED BY ER NURSE. PT A&O X3. ASSESSMENT COMPLETED. PT ORIENTED TO ROOM AND USE OF CALL LIGHT. IV SITE HEALTHY AND PATENT. JOHNS IN PLACE: TO GRAVITY WITH CLEAR YELLOW URINE. SAFETY PRECAUTIONS IN PLACE WITH CALL LIGHT IN REACH.
--- NOTE | 2022-01-25 13:15 | NUR ---
PT C/O PAIN ON RECTUM, LEVEL 10/10: ADMINISTERED PAIN MED PER EMAR. ADMINISTERED SCHEDULED LACTULOSE PER EMAR. SAFETY PRECAUTIONS IN PLACE WITH CALL LIGHT IN REACH.
--- NOTE | 2022-01-25 15:40 | NUR ---
UROLOGIST CONSULTED. WILL NOT PERFORM TELEVISIT, WILL INSTEAD SEE PATIENT IN OFFICE AFTER DISCHARGE. PATIENT WILL NEED TO GO HOME WITH JOHNS.
--- NOTE | 2022-01-25 16:15 | NUR ---
PT IN BED SITTING ON LOW FOWLERS. PT REQUESTED ICE CREAM AND CRACKERS: HYDROGEN PLANT OPERATIONS MANAGER EXPLAINED AND EDUCATED PT ON CLEAR LIQUID DIET ORDERED PER DR: PT AGREED AND SHOWED UNDERSTANDING. FRESH ICE WATER PROVIDED PER PT'S REQUEST. IV SITE HEALTHY AND PATENT INFUSING IV FLUIDS PER ORDER. JOHNS IN PLACE; TO GRAVITY WITH CLEAR DANICA URINE. SAFETY PRECAUTIONS IN PLACE WITH CALL LIGHT IN REACH.
--- NOTE | 2022-01-25 22:55 | NUR ---
PATIENT SITTING ON BEDSIDE COMMODE HAVING A LARGE BOWEL MOVEMENT. ASSISTED BACK TO BED. C/O OF DISCOMFORT IN ABDOMEN RATED A 10/10 ON PAIN SCALE. ADMINISTERED PAIN MEDICATION PER EMAR. ASSESSMENT COMPLETED. FALL PRECAUTIONS IN PLACE. CALL BARBOZA WITHIN REACH.
[2022-01-26 04:05] VITALS: BP 120/83
--- NOTE | 2022-01-26 04:18 | NUR ---
Patient refused daily weight @0400. Patient stated that he wants at later time.
[2022-01-26 05:08] LABS: HEMATOCRIT 25.8 % (39.0-50.0); HEMOGLOBIN 8.4 g/dl (14.0-18.0); MEAN CELL VOLUME 90.8 fL CALC (80.0-100.0); MEAN CORPUSCULAR HGB 29.6 pG CALC (26.0-32.0); MEAN CORPUSCULAR HGB CONC 32.6 g/dL CAL (32.0-36.0); RED BLOOD COUNT 2.84 mill/uL (4.70-6.10); RED CELL DISTRI WIDTH 20.2 % (11.5-15.5)
[2022-01-26 05:26] LABS: ALKALINE PHOSPHATASE 88 u/l (38-126); BILIRUBIN, TOTAL 0.7 mg/dL (0.0-1.4); BUN 6 mg/dL (8-23); BUN/CREATININE RATIO 14 (12-20 (CALC)); CHLORIDE 102 mmol/l (95-108); CREATININE 0.4 mg/dL (0.7-1.3); GFR FOR AFR.AMER. > 60 ML/MIN (>=60 (CALC)); GFR OTHER RACES > 60 ML/MIN (>=60 (CALC)); POTASSIUM 3.6 mmol/l (3.5-5.1); SGOT/AST 24 u/l (19-48); SODIUM 137 mmol/l (137-146)
[2022-01-26 05:32] LABS: ALBUMIN 2.8 g/dL (3.2-5.0); ANION GAP 9 (6-22 (CALC)); CARBON DIOXIDE 30 mmol/l (22-30); TOTAL PROTEIN 5.4 g/dL (6.3-8.2)
[2022-01-26 05:43] LABS: MAGNESIUM 0.6 mg/dL (1.6-2.3)
[2022-01-26 06:45] VITALS: BP 127/84
--- NOTE | 2022-01-26 06:55 | NUR ---
RECEIVED REPORT FROM EFE JON.
--- NOTE | 2022-01-26 07:00 | NUR ---
NOTIFIED PHYSICIAN DR. GONSALVES OF PATIENT'S [facility] OF 0.6. RECEIVED ORDER FOR REPLACEMENT OF 4G MAGNESIUM IV. ORDER FAXED TO PHARMACY.
--- NOTE | 2022-01-26 08:20 | NUR ---
PT SITTING ON BED HIGH FOWLERS: A&O X3. EVEN AND UNLABORED RESPIRATIONS; CLEAR LUNG SOUNDS UPON AUSCULTATION. TELEMETRY IN PLACE WITH LAST READING SR-88. IV SITE HEALTHY AND PATENT. JOHNS IN PLACE: TO GRAVITY WITH CLEAR YELLOW URINE. SAFETY PRECAUTIONS IN PLACE WITH CALL LIGHT IN REACH.
[2022-01-26 09:36] VITALS: BP 141/99
--- NOTE | 2022-01-26 10:18 | NUR ---
PT C/O ABDOMINAL PAIN LEVEL 8/10; ADMINISTERED PAIN MEDICATION PER EMAR. SAFETY PRECAUTIONS IN PLACE WITH CALL LIGHT IN REACH.
[2022-01-26 11:07] LABS: INTERNATIONAL NORMALIZED RATIO 1.1 RATIO (0.7-1.3); PROTHROMBIN TIME 11.2 SECONDS (9.0-12.5)
--- NOTE | 2022-01-26 12:15 | NUR ---
PT SITTING ON BED HIGH FOWLERS: HAVING LUNCH. IV SITE HEALTHY AND PATENT, INFUSING MAFNESIUM PER ORDER. NO DISTRESS OR PAIN NOTED. SAFETY PRECAUTIONS IN PLACE WITH CALL LIGHT IN REACH.
--- NOTE | 2022-01-26 12:59 | NUR ---
PT ASSISTED TO BSC: MYCHAL FORMED BM, OBTAINED SAMPLE AT THIS TIME AND SENT TO LAB. PT BACK IN BED. SAFETY PRECAUTIONS IN PLACE WITH CALL LIGHT IN REACH.
[2022-01-26 14:55] VITALS: BP 118/82
--- NOTE | 2022-01-26 16:46 | NUR ---
PT C/O ABDOMINAL PAIN LEVEL 7/10: ADMINISTERED PAIN MED PER EMAR. IV SITE HEALTHY AND PATENT, INFUSING IV FLUIDS PER EMAR. SAFETY PRECAUTIONS IN PLACE WITH CALL LIGHT IN REACH.
[2022-01-26 19:06] VITALS: BP 113/81
--- NOTE | 2022-01-26 20:15 | NUR ---
PT RESTING IN BED, NO SIGNS OF DISTRESS NOTED, RESP EVEN AND UNLABORED. PT ALERT AND ORIENTED X3, DISCUSSED POC, PT C/O ABD CRAMPING PAIN, PT MEDICATED PER MAR, IV BANANA BAG INFUSING PT TOLERATING WELL. PER PT HE HAS HAD A BM TODAY, ASSESSMENT COMPLETED, BS ACTIVE X4, CIWA-0. CALL LIGHT IN REACH,CONTINUE TO MONITOR.
[2022-01-27 00:29] VITALS: BP 91/64
--- NOTE | 2022-01-27 00:29 | NUR ---
PT RESTING IN BED, NO SIGNS OF DISTRESS NOTED, RESP EVEN AND UNLABORED. PT VOICES NO NEEDS OR COMPLAINTS AT THIS TIME, JOHNS EMPTIED OF 850CC OF CLOUDY URINE. CALL LIGHT IN REACH, CONTINUE TO MONITOR.
--- NOTE | 2022-01-27 04:00 | NUR ---
PT RESTING IN BED WITH EYES CLOSED, NO SIGNS OF DISTRESS NOTED, RESP EVEN AND UNLABORED, CALL LIGHT IN REACH, CONTINUE TO MONITOR.
[2022-01-27 04:01] VITALS: BP 113/76
[2022-01-27 05:42] LABS: HEMATOCRIT 30.7 % (39.0-50.0); HEMOGLOBIN 9.5 g/dl (14.0-18.0); MEAN CELL VOLUME 93.6 fL CALC (80.0-100.0); MEAN CORPUSCULAR HGB CONC 30.9 g/dL CAL (32.0-36.0); NEUT# 4.2 thou/uL (1.82-7.42); RED BLOOD COUNT 3.28 mill/uL (4.70-6.10); RED CELL DISTRI WIDTH 19.7 % (11.5-15.5)
[2022-01-27 06:04] LABS: BUN 2 mg/dL (8-23); BUN/CREATININE RATIO 4 (12-20 (CALC)); CARBON DIOXIDE 30 mmol/l (22-30); CHLORIDE 102 mmol/l (95-108); CREATININE 0.5 mg/dL (0.7-1.3); GFR FOR AFR.AMER. > 60 ML/MIN (>=60 (CALC)); GFR OTHER RACES > 60 ML/MIN (>=60 (CALC)); SODIUM 137 mmol/l (137-146)
[2022-01-27 06:09] LABS: ANION GAP 10 (6-22 (CALC)); MAGNESIUM 1.2 mg/dL (1.6-2.3); POTASSIUM 4.7 mmol/l (3.5-5.1)
--- NOTE | 2022-01-27 06:55 | NUR ---
RECEIVED REPORT FROM WILLIAMS SHARPE.
[2022-01-27 07:31] VITALS: BP 122/81
--- NOTE | 2022-01-27 08:22 | NUR ---
PT SITTING ON BED WATCHING TV: A&O X3. EVEN AND UNLABORED RESPIRATIONS: CLEAR LUNG SOUNDS UPON AUSCULTATION. TELEMETRY IN PLACE WITH LAST READING SR-78. IV SITE FLUSHED: # 20 LF AC, HEALTHY AND PATENT. ACTIVE BOWEL SOUNDS X4 QUADRANTS. JOHNS IN PLACE: TO GRAVITY WITH CLEAR, YELLOW URINE. SAFETY PRECAUTIONS IN PLACE WITH CALL LIGHT IN REACH.
[2022-01-27 11:33] VITALS: BP 114/82
[2022-01-27] MEDS ORDERED: MIRALAX17 GM PO (11:52)
--- NOTE | 2022-01-27 12:30 | NUR ---
PT SITTING ON BED WATCHING TV. NO DISTRESS OR PAIN NOTED. FRESH WATER PROVIDED PER PT'S REQUEST. JOHNS IN PLACE: TO GRAVITY WITH CLEAR YELLOW URINE. SAFETY PRECAUTIONS IN PLACE WITH CALL LIGHT IN REACH.
[2022-01-27 15:00] VITALS: BP 113/76
--- NOTE | 2022-01-27 16:23 | NUR ---
PT EDUCATED ON DC INSTRUCTIONS: PT GOING HOME WITH JOHNS IN PLACE TO FOLLOW UP UROLOGIST OUTPATIENT, PT EDUCATED ON JOHNS CARE; PT SHOWED UNDERSTANDING. REMOVED IV: #20 LEFT AC, CATHETER INTACT UPON REMOVAL, PT TOLERATED WELL. TELEMETRY BOX REMOVED, ER NOTIFIED OF SAME.
--- NOTE | 2022-01-27 17:11 | NUR ---
PT LEFT @1700. Discharge instructions given. Patient verbalizes understanding of same. Discharged in stable condition via Wheelchair to Home with staff. All belongings sent with pt.
== END 2022-01-27 17:00 | disposition home or self-care (01) | DRG 390 ==
LOC: ED 06:49 → ED-I 08:03 → ED 08:14 → MS2 08:14
PROVIDERS: Emergency Medicine; ADMIT Internal Medicine; ATTEND Internal Medicine
PROC: 0T9B70Z Drainage of Bladder with Drainage Device, Via Natural or Artificial Opening (ICD-10-PCS; principal; 2022-01-25)
DX: K56.41 Fecal impaction (principal); N40.1 Benign prostatic hyperplasia with lower urinary tract symptoms; R33.8 Other retention of urine; I10 Essential (primary) hypertension; E11.9 Type 2 diabetes mellitus without complications; F10.229 Alcohol dependence with intoxication, unspecified; D53.9 Nutritional anemia, unspecified; E78.5 Hyperlipidemia, unspecified; F41.9 Anxiety disorder, unspecified; F32.A Depression, unspecified; E83.42 Hypomagnesemia; Y90.4 Blood alcohol level of 80-99 mg/100 ml; Z79.84 Long term (current) use of oral hypoglycemic drugs; Z87.11 Personal history of peptic ulcer disease; Z87.891 Personal history of nicotine dependence; Z20.822 Contact with and (suspected) exposure to COVID-19
CPT/HCPCS: G0378; J1650; J3475

== ENCOUNTER 2022-02-15 14:51 | Emergency (ER) | payer OTHER ==
[2022-02-15] VITALS (19 sets, daily range): BP systolic 96–156; BP diastolic 71–117
[~2022-02-15] VITALS: Ht 165.1 cm; Wt 67.0 kg
[~2022-02-15 14:51] MED LIST changes: +MIRALAX17 GM PO
[2022-02-15 15:42] LABS: HEMATOCRIT 33.3 % (39.0-50.0); HEMOGLOBIN 10.7 g/dl (14.0-18.0); IMMATURE GRANULOCYTES 0.1 % (0.0-5.0); MEAN CORPUSCULAR HGB 27.6 pG CALC (26.0-32.0); MEAN CORPUSCULAR HGB CONC 32.1 g/dL CAL (32.0-36.0); NEUT# 6.88 thou/uL (1.82-7.42); RED BLOOD COUNT 3.87 mill/uL (4.70-6.10); RED CELL DISTRI WIDTH 18.7 % (11.5-15.5)
[2022-02-15 16:06] LABS: BUN 10 mg/dL (8-23); BUN/CREATININE RATIO 14 (12-20 (CALC)); CHLORIDE 109 mmol/l (95-108); CREATININE 0.7 mg/dL (0.7-1.3); GFR FOR AFR.AMER. > 60 ML/MIN (>=60 (CALC)); GFR OTHER RACES > 60 ML/MIN (>=60 (CALC)); POTASSIUM 4.1 mmol/l (3.5-5.1); SGOT/AST 33 u/l (19-48)
[2022-02-15 16:08] LABS: ALBUMIN 3.8 g/dL (3.2-5.0); ALKALINE PHOSPHATASE 141 u/l (38-126); ANION GAP 20 (6-22 (CALC)); BILIRUBIN, TOTAL 0.2 mg/dL (0.0-1.4); CARBON DIOXIDE 19 mmol/l (22-30); SODIUM 144 mmol/l (137-146); TOTAL PROTEIN 7.7 g/dL (6.3-8.2)
[2022-02-15 16:19] LABS: ETHYL ALCOHOL 396 mg/dl (0-30)
[2022-02-15 16:43] LABS: URINE BILIRUBIN - DIPSTICK NEGATIVE (NEGATIVE); URINE BLOOD DIPSTICK NEGATIVE (NEGATIVE); URINE COLOR YELLOW; URINE GLUCOSE - DIPSTICK NEGATIVE (NEGATIVE); URINE KETONE NEGATIVE (NEGATIVE); URINE LEUK ESTERASE TRACE (NEGATIVE); URINE NITRITE - DIPSTICK NEGATIVE (Negative); URINE PROTEIN - DIPSTICK NEGATIVE (NEG-TRACE); URINE SPECIFIC GRAVITY <=1.005; URINE UROBILINOGEN - DIPSTICK 0.2 E.U./dL (0.2)
[2022-02-16] VITALS (46 sets, daily range): BP systolic 105–172; BP diastolic 71–117
[2022-02-17] VITALS (24 sets, daily range): BP systolic 97–147; BP diastolic 67–101
== END 2022-02-17 12:20 | DRG 880 ==
LOC: ED 14:51
PROVIDERS: Emergency Medicine
DX: R45.851 Suicidal ideations (principal); F10.129 Alcohol abuse with intoxication, unspecified; I10 Essential (primary) hypertension; K21.9 Gastro-esophageal reflux disease without esophagitis; E78.5 Hyperlipidemia, unspecified; Z79.84 Long term (current) use of oral hypoglycemic drugs; Z20.822 Contact with and (suspected) exposure to COVID-19
CPT/HCPCS: J2060

== ENCOUNTER 2022-02-24 00:28 | Emergency (ER) | payer OTHER ==
[2022-02-24] VITALS (31 sets, daily range): BP systolic 113–157; BP diastolic 78–119
[~2022-02-24] VITALS: Ht 165.1 cm; Wt 60.9 kg
[2022-02-24 01:16] LABS: HEMATOCRIT 37.2 % (39.0-50.0); HEMOGLOBIN 11.7 g/dl (14.0-18.0); IMMATURE GRANULOCYTES 0.3 % (0.0-5.0); MEAN CORPUSCULAR HGB CONC 31.5 g/dL CAL (32.0-36.0); NEUT# 2.78 thou/uL (1.82-7.42); RED BLOOD COUNT 4.18 mill/uL (4.70-6.10); RED CELL DISTRI WIDTH 18.1 % (11.5-15.5)
[2022-02-24 01:28] LABS: ALBUMIN 4.3 g/dL (3.2-5.0); ALKALINE PHOSPHATASE 126 u/l (38-126); ANION GAP 24 (6-22 (CALC)); BUN 8 mg/dL (8-23); BUN/CREATININE RATIO 14 (12-20 (CALC)); CARBON DIOXIDE 20 mmol/l (22-30); CHLORIDE 105 mmol/l (95-108); CREATININE 0.6 mg/dL (0.7-1.3); ETHYL ALCOHOL 259 mg/dl (0-30); GFR FOR AFR.AMER. > 60 ML/MIN (>=60 (CALC)); GFR OTHER RACES > 60 ML/MIN (>=60 (CALC)); POTASSIUM 4.3 mmol/l (3.5-5.1); SGOT/AST 27 u/l (19-48); SODIUM 145 mmol/l (137-146); TOTAL PROTEIN 8.5 g/dL (6.3-8.2)
[2022-02-24 01:30] LABS: BILIRUBIN, TOTAL 0.3 mg/dL (0.0-1.4)
[2022-02-24 02:37] LABS: URINE BILIRUBIN - DIPSTICK NEGATIVE (NEGATIVE); URINE COLOR YELLOW; URINE GLUCOSE - DIPSTICK NEGATIVE (NEGATIVE); URINE KETONE NEGATIVE (NEGATIVE); URINE PROTEIN - DIPSTICK NEGATIVE (NEG-TRACE); URINE SPECIFIC GRAVITY <=1.005; URINE UROBILINOGEN - DIPSTICK 0.2 E.U./dL (0.2)
[2022-02-24 02:41] LABS: URINE BLOOD DIPSTICK NEGATIVE (NEGATIVE); URINE LEUK ESTERASE LARGE (NEGATIVE); URINE NITRITE - DIPSTICK NEGATIVE (Negative)
[2022-02-24 02:44] LABS: URINE BACTERIA MANY hpf; URINE EPITHELIAL CELLS FEW EPI/hpf (0-FEW); URINE WBC 50-100 WBC/hpf (0-5)
[2022-02-24] MEDS ORDERED: KEFLEX500 MG PO (07:06)
== END 2022-02-24 08:41 | disposition home or self-care (01) | DRG 690 ==
LOC: ED 00:28
PROVIDERS: Emergency Medicine
PROC: 0T9B70Z Drainage of Bladder with Drainage Device, Via Natural or Artificial Opening (ICD-10-PCS; principal; 2022-02-24)
DX: N39.0 Urinary tract infection, site not specified (principal); R33.9 Retention of urine, unspecified; F10.129 Alcohol abuse with intoxication, unspecified; I10 Essential (primary) hypertension; E11.9 Type 2 diabetes mellitus without complications; K21.9 Gastro-esophageal reflux disease without esophagitis; E78.5 Hyperlipidemia, unspecified; B96.1 Klebsiella pneumoniae [K. pneumoniae] as the cause of diseases classified elsewhere

== ENCOUNTER 2022-05-09 06:20 | Emergency (ER) | payer OTHER ==
[~2022-05-09] VITALS: Ht 165.1 cm; Wt 63.0 kg
[2022-05-09] VITALS (23 sets, daily range): BP systolic 129–176; BP diastolic 89–130
[~2022-05-09 06:20] MED LIST changes: +KEFLEX500 MG PO
[2022-05-09 06:49] LABS: IMMATURE GRANULOCYTES 0.2 % (0.0-5.0); MEAN CELL VOLUME 89.6 fL CALC (80.0-100.0); MEAN CORPUSCULAR HGB CONC 32.4 g/dL CAL (32.0-36.0); NEUT# 2.77 thou/uL (1.82-7.42); RED BLOOD COUNT 3.45 mill/uL (4.70-6.10); RED CELL DISTRI WIDTH 20.3 % (11.5-15.5)
[2022-05-09 06:54] LABS: HEMATOCRIT 30.9 % (39.0-50.0)
[2022-05-09 06:57] LABS: ALBUMIN 3.7 g/dL (3.2-5.0); ALKALINE PHOSPHATASE 119 u/l (38-126); ANION GAP 17 (6-22 (CALC)); BILIRUBIN, TOTAL 0.2 mg/dL (0.0-1.4); BUN 21 mg/dL (8-23); BUN/CREATININE RATIO 36 (12-20 (CALC)); CARBON DIOXIDE 24 mmol/l (22-30); CHLORIDE 102 mmol/l (95-108); CREATININE 0.6 mg/dL (0.7-1.3); GFR FOR AFR.AMER. > 60 ML/MIN (>=60 (CALC)); GFR OTHER RACES > 60 ML/MIN (>=60 (CALC)); LIPASE < 10 u/l (23-300); MAGNESIUM 1.2 mg/dL (1.6-2.3); POTASSIUM 3.6 mmol/l (3.5-5.1); SGOT/AST 28 u/l (19-48); SODIUM 140 mmol/l (137-146)
[2022-05-09 07:01] LABS: ETHYL ALCOHOL 0 mg/dl (0-30)
[2022-05-09 09:43] LABS: URINE BILIRUBIN - DIPSTICK NEGATIVE (NEGATIVE); URINE BLOOD DIPSTICK NEGATIVE (NEGATIVE); URINE COLOR YELLOW; URINE GLUCOSE - DIPSTICK 100 mg/dL (NEGATIVE); URINE KETONE NEGATIVE (NEGATIVE); URINE LEUK ESTERASE NEGATIVE (NEGATIVE); URINE PROTEIN - DIPSTICK NEGATIVE (NEG-TRACE); URINE SPECIFIC GRAVITY 1.025; URINE UROBILINOGEN - DIPSTICK 0.2 E.U./dL (0.2)
[2022-05-09 09:50] LABS: URINE NITRITE - DIPSTICK NEGATIVE (Negative)
== END 2022-05-09 12:17 | disposition home or self-care (01) | DRG 392 ==
LOC: ED 06:20
PROVIDERS: Family Medicine
DX: R10.11 Right upper quadrant pain (principal); E83.42 Hypomagnesemia; R73.9 Hyperglycemia, unspecified
CPT/HCPCS: J3475; Q9967; S0164

== ENCOUNTER 2022-05-12 07:41 | Observation (INO) | payer OTHER ==
[~2022-05-12] VITALS: Ht 165.1 cm; Wt 61.4 kg
[2022-05-12] VITALS (32 sets, daily range): BP systolic 118–164; BP diastolic 84–110
--- NOTE | 2022-05-12 07:43 | NUR ---
PT IN ROOM VIA EMS FOR TRIAGE
[2022-05-12 08:04] LABS: HEMATOCRIT 31.6 % (39.0-50.0); HEMOGLOBIN 9.9 g/dl (14.0-18.0); IMMATURE GRANULOCYTES 0.1 % (0.0-5.0); MEAN CELL VOLUME 90.8 fL CALC (80.0-100.0); MEAN CORPUSCULAR HGB 28.4 pG CALC (26.0-32.0); MEAN CORPUSCULAR HGB CONC 31.3 g/dL CAL (32.0-36.0); NEUT# 5.78 thou/uL (1.82-7.42); RED BLOOD COUNT 3.48 mill/uL (4.70-6.10); RED CELL DISTRI WIDTH 20.8 % (11.5-15.5)
[2022-05-12 08:20] LABS: ALBUMIN 3.4 g/dL (3.2-5.0); ALKALINE PHOSPHATASE 120 u/l (38-126); ANION GAP 14 (6-22 (CALC)); BUN 13 mg/dL (8-23); BUN/CREATININE RATIO 22 (12-20 (CALC)); CARBON DIOXIDE 20 mmol/l (22-30); CHLORIDE 103 mmol/l (95-108); CREATININE 0.6 mg/dL (0.7-1.3); ETHYL ALCOHOL 0 mg/dl (0-30); GFR FOR AFR.AMER. > 60 ML/MIN (>=60 (CALC)); GFR OTHER RACES > 60 ML/MIN (>=60 (CALC)); LIPASE 12 u/l (23-300); POTASSIUM 3.9 mmol/l (3.5-5.1); SGOT/AST 35 u/l (19-48); SODIUM 134 mmol/l (137-146); TOTAL PROTEIN 6.8 g/dL (6.3-8.2)
[2022-05-12 08:25] LABS: BILIRUBIN, TOTAL 0.4 mg/dL (0.0-1.4)
--- NOTE | 2022-05-12 08:33 | NUR ---
bREATH HOLDING, GUARDING IN PAIN, MEDICATED, IVF INFUSING, REPOSITIONED DECLINED. LIGHTS DIMMED VSS
--- NOTE | 2022-05-12 08:56 | NUR ---
PAIN 3/10 INTERMITTENT, STATED RELIEF, SMILING ON PHONE.
--- NOTE | 2022-05-12 09:48 | NUR ---
RESTING-IVF INFUSED
--- NOTE | 2022-05-12 09:48 | NUR ---
STATED RELIEF 08/02
--- NOTE | 2022-05-12 09:58 | NUR ---
U/A OBTAINED-SENT, ABLE TO SIT @ BS, NO C/O, VOID DANICA 100IX
[2022-05-12 10:13] LABS: URINE BILIRUBIN - DIPSTICK NEGATIVE (NEGATIVE); URINE BLOOD DIPSTICK NEGATIVE (NEGATIVE); URINE COLOR YELLOW; URINE GLUCOSE - DIPSTICK NEGATIVE (NEGATIVE); URINE KETONE NEGATIVE (NEGATIVE); URINE LEUK ESTERASE NEGATIVE (NEGATIVE); URINE PROTEIN - DIPSTICK NEGATIVE (NEG-TRACE)
[2022-05-12 10:15] LABS: URINE NITRITE - DIPSTICK NEGATIVE (Negative)
--- NOTE | 2022-05-12 11:03 | NUR ---
CALM, NO C/O, IV MED INFUSING, LIGHTS DIMMED, RESTING
--- NOTE | 2022-05-12 11:36 | NUR ---
MY MEDS ARE IN THE SYSTEM, I DONT KNOW THEM, I DONT KNOW THE MEDS ISABEL TAKEN LATELY,
[2022-05-12] MEDS ORDERED: ELIQUIS2.5 MG (12:00)
[2022-05-12] MEDS ORDERED: TIAZAC180 MG (12:01)
[2022-05-12] MEDS ORDERED: TRAZODONE50 MG PO (12:03)
--- NOTE | 2022-05-12 12:31 | NUR ---
VOID 400 DANICA, STATES PAIN APPROACHING 6 AGAIN-REQUESTING MORE ANALGESIA- MD AWARE
--- NOTE | 2022-05-12 12:57 | NUR ---
bp DROPPED TO NORMAL AFTER PAIN MED INSTILLED, TRYING TO REST
--- NOTE | 2022-05-12 13:45 | NUR ---
Reassessment of patient completed. No distress noted.
--- NOTE | 2022-05-12 14:40 | NUR ---
Reassessment of patient completed. No distress noted.
--- NOTE | 2022-05-12 15:20 | NUR ---
PT ADMITTED TO MS 269. BEDSIDE REPORT GIVEN TO NURSE PUENTE. PT TRANSPORTED TO FLOOR VIA WHEELCHAIR
--- NOTE | 2022-05-12 19:00 | NUR ---
BEDSIDE SHIFT REPORT COMPLETE. RESTING IN BED WATCHING TV.
--- NOTE | 2022-05-12 21:37 | NUR ---
ASSESSMENT COMPLETE. PATIENT ALERT AND ORIENTED X4. SITTING UP IN BED WATCHING TV. GO-LYTELY AT BEDSIDE, 1/2 OF THE TOTAL SOLUTION REMAINS IN JUG. FILLED 3 CUPS WITH GO-LYTELY FOR COLON PREP IN A.M AND ENCOURAGED PATIENT TO TRY AND COMPLETE 3 CUPS PER AN HOUR; HE AGREES. C/O HEADACHE, TYLENOL ADMINISTERED. NO FURTHER CONCERNS EXPRESSED. CALL LIGHT WITHIN REACH.
[2022-05-13] VITALS (8 sets, daily range): BP systolic 92–148; BP diastolic 63–104
--- NOTE | 2022-05-13 00:50 | NUR ---
SITTING UP IN BED WATCHING TV. C/O MILD NECK PAIN, WARM COMPRESS GIVEN. NO DISTRESS NOTED AT THIS TIME. CALL LIGHT WITHIN REACH.
--- NOTE | 2022-05-13 01:49 | NUR ---
1 PERSON ASSIST TO RESTROOM. LARGE, FORMED, BLACK STOOL NOTED.
--- NOTE | 2022-05-13 05:17 | NUR ---
PATIENT REQUESTS ASSISTANCE TO RESTROOM. DARK BROWN LIQUID STOOL NOTED.
[2022-05-13 05:25] LABS: HEMATOCRIT 32.6 % (39.0-50.0); HEMOGLOBIN 10.4 g/dl (14.0-18.0); MEAN CELL VOLUME 91.8 fL CALC (80.0-100.0); MEAN CORPUSCULAR HGB 29.3 pG CALC (26.0-32.0); MEAN CORPUSCULAR HGB CONC 31.9 g/dL CAL (32.0-36.0); NEUT# 4.46 thou/uL (1.82-7.42); RED BLOOD COUNT 3.55 mill/uL (4.70-6.10); RED CELL DISTRI WIDTH 20.7 % (11.5-15.5)
[2022-05-13 05:44] LABS: BUN 6 mg/dL (8-23); BUN/CREATININE RATIO 13 (12-20 (CALC)); CHLORIDE 105 mmol/l (95-108); CREATININE 0.5 mg/dL (0.7-1.3); GFR FOR AFR.AMER. > 60 ML/MIN (>=60 (CALC)); GFR OTHER RACES > 60 ML/MIN (>=60 (CALC)); SODIUM 137 mmol/l (137-146)
[2022-05-13 05:45] LABS: ANION GAP 12 (6-22 (CALC)); CARBON DIOXIDE 25 mmol/l (22-30)
--- NOTE | 2022-05-13 06:23 | NUR ---
BP 144/100, HR 89; PHYSICIAN NOTIFIED, NO ORDERS GIVEN.
--- NOTE | 2022-05-13 07:00 | NUR ---
RECEIVE REPORT FROM KIMBERLEE WILKS.
--- NOTE | 2022-05-13 08:00 | NUR ---
PATIENT ALERT AND ORIENTED X3. RESTING STABLE IN BED AT THIS TIME. ASSESSMENTE HEAD-TO TOE COMPLETE. PATIENT IS EDUCATED ABOUD MEDICATIONS, PAIN MANAGEMENT AND NURSING PLAN FOR TODAY. PATIENT REFER UNSERSTAND. SAFETY AND FALL PRECAUTIONS IN PLACE. CALL LIGHT WITHIN IN REACH. BEFORE HE LEFT OR THE
[2022-05-13] MEDS ORDERED: METFORMIN500 M2 PO (11:57)
[2022-05-13] MEDS ORDERED: PROTONIX40 M2 PO (11:58)
[2022-05-13] MEDS ORDERED: ROSUVASTATIN CA10 MG PO (11:59)
--- NOTE | 2022-05-13 12:28 | NUR ---
PT RESTING IN BED. STATES NO PAIN. TELE MONITOR IN PLACE. CONTINOUS MONITORING FALL/SAFTEY PRECAUTION IN PLACE, CALL LIGHT WITHIN REACH.
--- NOTE | 2022-05-13 16:41 | NUR ---
Patient resting in bed pleassant at this time. No complaint for pain. HR Better after cardizen po according medical order. Call light within in reach.
--- NOTE | 2022-05-13 19:19 | NUR ---
BEDSIDE SHIFT REPORT COMPLETE. PATIENT RESTING QUIETLY. CALL LIGHT WITHIN REACH.
--- NOTE | 2022-05-13 20:55 | NUR ---
ASSESSMENT COMPLETE. PATIENT LAYING IN BED C/O TERRIBLE HEADACHE, LORTAB ADMINISTERED. NO DISTRESS NOTED, NO FURTHER CONCERNS EXPRESSED. CALL LIGHT WITHIN REACH.
--- NOTE | 2022-05-14 00:33 | NUR ---
RESTING QUIETLY EYES CLOSED. C/O MILD HEADACHE, PAIN HAS IMPROVED COMPARED TO PRIOR. NO DISTRESS NOTED. CALL LIGHT WITHIN REACH, BED ALARM ACTIVATED.
[2022-05-14 03:47] VITALS: BP 130/90
--- NOTE | 2022-05-14 04:37 | NUR ---
RESTING IN BED. PATIENT STATES HEADACHE REMAINS 2/10 AFTER MEDICATION GIVEN, COLD COMPRESS PLACED ON HEAD FOR COMFORT.
[2022-05-14 05:11] LABS: HEMATOCRIT 31.9 % (39.0-50.0); IMMATURE GRANULOCYTES 0.3 % (0.0-5.0); MEAN CORPUSCULAR HGB 29.2 pG CALC (26.0-32.0); MEAN CORPUSCULAR HGB CONC 31.3 g/dL CAL (32.0-36.0); NEUT# 4.91 thou/uL (1.82-7.42); RED BLOOD COUNT 3.43 mill/uL (4.70-6.10); RED CELL DISTRI WIDTH 20.4 % (11.5-15.5)
[2022-05-14 05:31] LABS: ALBUMIN 3.5 g/dL (3.2-5.0); ALKALINE PHOSPHATASE 128 u/l (38-126); ANION GAP 12 (6-22 (CALC)); BUN 10 mg/dL (8-23); BUN/CREATININE RATIO 14 (12-20 (CALC)); CARBON DIOXIDE 27 mmol/l (22-30); CHLORIDE 104 mmol/l (95-108); CREATININE 0.7 mg/dL (0.7-1.3); GFR FOR AFR.AMER. > 60 ML/MIN (>=60 (CALC)); GFR OTHER RACES > 60 ML/MIN (>=60 (CALC)); POTASSIUM 4.5 mmol/l (3.5-5.1); SGOT/AST 26 u/l (19-48); SODIUM 139 mmol/l (137-146); TOTAL PROTEIN 6.6 g/dL (6.3-8.2)
[2022-05-14 05:33] LABS: BILIRUBIN, TOTAL 0.2 mg/dL (0.0-1.4)
[2022-05-14 06:20] VITALS: BP 134/85
--- NOTE | 2022-05-14 08:00 | NUR ---
PT RESTING IN BED. STATES NO PAIN/NAUSEA OR VOMTIING. ASSESSMENT COMPLETED. UPDATED PT IN [facility]. PT INDICATED UNDERSTANDING. TELE MONITOR IN PLACE, CONTINOUS MONITORING PER ED. FALL/SAFTEY PRECAUTION IN PLACE, CALL LIGHT WITHIN REACH.
[2022-05-14 10:31] VITALS: BP 124/81
[2022-05-14] MEDS ORDERED: CARAFATE1 GM PO (11:26)
--- NOTE | 2022-05-14 12:00 | NUR ---
PT RESTIGN I NBED. STATES NO PAIN. BREAHTING EVEN AND UNLABORED. NO DISTRESS NOTED. FALL/SAFTEY PRECAUTION I NPLACE, CALL LIGHT WITHIN REACH.
[2022-05-14 14:45] VITALS: BP 131/84
--- NOTE | 2022-05-14 16:30 | NUR ---
Discharge instructions given. Patient verbalizes understanding of same. Discharged in STABLE CONDITION via Wheelchair to Home with staff. All belongings sent with pt.
== END 2022-05-14 16:30 | disposition home or self-care (01) | DRG 377 ==
LOC: ED 07:41 → ED-I 11:10 → ED 11:26 → MS2 11:27
PROVIDERS: Family Medicine; Nurse Practitioner Family; Surgery; ADMIT Internal Medicine; ATTEND Internal Medicine
DX: K92.1 Melena (principal); D62 Acute posthemorrhagic anemia; U07.1 COVID-19; K86.0 Alcohol-induced chronic pancreatitis; I86.8 Varicose veins of other specified sites; I10 Essential (primary) hypertension; E11.9 Type 2 diabetes mellitus without complications; E78.5 Hyperlipidemia, unspecified; F41.9 Anxiety disorder, unspecified; F10.20 Alcohol dependence, uncomplicated; Z87.891 Personal history of nicotine dependence; Z79.84 Long term (current) use of oral hypoglycemic drugs; Z87.11 Personal history of peptic ulcer disease
CPT/HCPCS: Q9967; S0164

== ENCOUNTER 2022-06-04 22:50 | Emergency (ER) | payer OTHER ==
[~2022-06-04] VITALS: Ht 165.1 cm; Wt 63.6 kg
[~2022-06-04 22:50] MED LIST changes: +CARAFATE1 GM PO; +ELIQUIS2.5 MG; +ROSUVASTATIN CA10 MG PO; +TIAZAC180 MG
[2022-06-04 23:42] LABS: BASO% 0.2 % (0-3); EOS% 1.6 % (0-8); HEMATOCRIT 29.8 % (39.0-50.0); HEMOGLOBIN 9.8 g/dl (14.0-18.0); LYMPH% 41.2 % (15-41); MEAN CELL VOLUME 89.2 fL CALC (80.0-100.0); MEAN CORPUSCULAR HGB 29.3 pG CALC (26.0-32.0); MEAN CORPUSCULAR HGB CONC 32.9 g/dL CAL (32.0-36.0); MONO% 8.2 % (2-13); NEUT# 2.46 thou/uL (1.82-7.42); NEUT% 48.8 % (42-76); RED BLOOD COUNT 3.34 mill/uL (4.70-6.10); RED CELL DISTRI WIDTH 19.8 % (11.5-15.5)
[2022-06-04 23:58] LABS: ALKALINE PHOSPHATASE 122 u/l (38-126); BUN 11 mg/dL (8-23); BUN/CREATININE RATIO 18 (12-20 (CALC)); CARBON DIOXIDE 23 mmol/l (22-30); CHLORIDE 112 mmol/l (95-108); CREATININE 0.6 mg/dL (0.7-1.3); GFR FOR AFR.AMER. > 60 ML/MIN (>=60 (CALC)); GFR OTHER RACES > 60 ML/MIN (>=60 (CALC)); SGOT/AST 28 u/l (19-48); TOTAL PROTEIN 7.6 g/dL (6.3-8.2)
[2022-06-04 23:59] LABS: ANION GAP 14 (6-22 (CALC)); BILIRUBIN, TOTAL 0.3 mg/dL (0.0-1.4); POTASSIUM 3.3 mmol/l (3.5-5.1); SODIUM 146 mmol/l (137-146)
[2022-06-05 00:11] LABS: ETHYL ALCOHOL 330 mg/dl (0-30)
[2022-06-05] MEDS ORDERED: POT CHLORIDE20 ME2 PO (06:31)
[2022-06-05 07:30] LABS: URINE BILIRUBIN - DIPSTICK NEGATIVE (NEGATIVE); URINE BLOOD DIPSTICK NEGATIVE (NEGATIVE); URINE COLOR YELLOW; URINE GLUCOSE - DIPSTICK NEGATIVE (NEGATIVE); URINE KETONE NEGATIVE (NEGATIVE); URINE LEUK ESTERASE NEGATIVE (NEGATIVE); URINE NITRITE - DIPSTICK NEGATIVE (Negative); URINE PROTEIN - DIPSTICK NEGATIVE (NEG-TRACE)
[2022-06-05 07:44] VITALS: BP 186/98
== END 2022-06-05 08:01 | disposition home or self-care (01) | DRG 897 ==
LOC: ED 22:50
PROVIDERS: Family Medicine
DX: F10.129 Alcohol abuse with intoxication, unspecified (principal); Y90.8 Blood alcohol level of 240 mg/100 ml or more; E87.6 Hypokalemia

== ENCOUNTER 2022-06-12 22:11 | Emergency (ER) | payer OTHER ==
[~2022-06-12] VITALS: Ht 165.1 cm; Wt 59.0 kg
[~2022-06-12 22:11] MED LIST changes: +POT CHLORIDE20 ME2 PO
[2022-06-12 22:27] VITALS: BP 128/93
[2022-06-12 22:30] VITALS: BP 133/97
[2022-06-12 22:48] LABS: BASO% 0.2 % (0-3); EOS% 0.4 % (0-8); HEMOGLOBIN 9.4 g/dl (14.0-18.0); IMMATURE GRANULOCYTES 0.2 % (0.0-5.0); LYMPH% 18.5 % (15-41); MEAN CORPUSCULAR HGB 27.2 pG CALC (26.0-32.0); MEAN CORPUSCULAR HGB CONC 31.3 g/dL CAL (32.0-36.0); MONO% 11.3 % (2-13); NEUT# 3.68 thou/uL (1.82-7.42); NEUT% 69.4 % (42-76); RED BLOOD COUNT 3.45 mill/uL (4.70-6.10)
[2022-06-12 23:00] VITALS: BP 132/99
[2022-06-12 23:04] LABS: ALKALINE PHOSPHATASE 130 u/l (38-126); BUN 7 mg/dL (8-23); BUN/CREATININE RATIO 12 (12-20 (CALC)); CHLORIDE 102 mmol/l (95-108); CREATININE 0.6 mg/dL (0.7-1.3); GFR FOR AFR.AMER. > 60 ML/MIN (>=60 (CALC)); GFR OTHER RACES > 60 ML/MIN (>=60 (CALC)); SGOT/AST 47 u/l (19-48); SODIUM 139 mmol/l (137-146); TOTAL PROTEIN 7.5 g/dL (6.3-8.2)
[2022-06-12 23:10] LABS: ANION GAP 12 (6-22 (CALC)); BILIRUBIN, TOTAL 0.7 mg/dL (0.0-1.4); CARBON DIOXIDE 28 mmol/l (22-30)
[2022-06-12 23:30] VITALS: BP 138/96
[2022-06-13] VITALS: BP 142/100
[2022-06-13 00:30] VITALS: BP 147/102
[2022-06-13 01:00] VITALS: BP 152/101
[2022-06-13 01:30] VITALS: BP 151/104
[2022-06-13 03:54] LABS: URINE BILIRUBIN - DIPSTICK NEGATIVE (NEGATIVE); URINE BLOOD DIPSTICK NEGATIVE (NEGATIVE); URINE COLOR YELLOW; URINE GLUCOSE - DIPSTICK 100 mg/dL (NEGATIVE); URINE KETONE NEGATIVE (NEGATIVE); URINE LEUK ESTERASE NEGATIVE (NEGATIVE); URINE PROTEIN - DIPSTICK NEGATIVE (NEG-TRACE)
[2022-06-13 03:55] LABS: URINE NITRITE - DIPSTICK NEGATIVE (Negative)
[2022-06-13 07:20] VITALS: BP 151/90
== END 2022-06-13 07:27 | disposition home or self-care (01) | DRG 897 ==
LOC: ED 22:11
PROVIDERS: Emergency Medicine
DX: F10.129 Alcohol abuse with intoxication, unspecified (principal); Y90.6 Blood alcohol level of 120-199 mg/100 ml; E87.6 Hypokalemia

== ENCOUNTER 2022-10-27 08:51 | Emergency (ER) | payer OTHER ==
[~2022-10-27] VITALS: Ht 165.1 cm; Wt 62.0 kg
[2022-10-27 09:47] LABS: BASO% 0.4 % (0-3); EOS% 0.8 % (0-8); HEMATOCRIT 34.1 % (39.0-50.0); HEMOGLOBIN 9.4 g/dl (14.0-18.0); IMMATURE GRANULOCYTES 3.9 % (0.0-5.0); LYMPH% 37.5 % (15-41); MEAN CELL VOLUME 84.6 fL CALC (80.0-100.0); MEAN CORPUSCULAR HGB 23.3 pG CALC (26.0-32.0); MEAN CORPUSCULAR HGB CONC 27.6 g/dL CAL (32.0-36.0); NEUT# 6.61 thou/uL (1.82-7.42); NEUT% 46.4 % (42-76); RED BLOOD COUNT 4.03 mill/uL (4.70-6.10); RED CELL DISTRI WIDTH 20.8 % (11.5-15.5)
[2022-10-27 09:52] LABS: ALBUMIN 3.6 g/dL (3.2-5.0); TOTAL PROTEIN 6.8 g/dL (6.3-8.2)
[2022-10-27 09:57] LABS: CREATININE 1.9 mg/dL (0.7-1.3); POTASSIUM 4.2 mmol/l (3.5-5.1)
[2022-10-27 09:59] LABS: BILIRUBIN, TOTAL 0.4 mg/dL (0.2-1.3)
[2022-10-27 10:06] VITALS: BP 151/69
[2022-10-27 10:09] VITALS: BP 117/47
[2022-10-27 10:10] VITALS: BP 103/47
[2022-10-27 10:14] VITALS: BP 150/124
[2022-10-27 10:16] VITALS: BP 70/52
[2022-10-27 14:24] VITALS: BP 70/52
== END 2022-10-27 14:24 | disposition expired | DRG 298 ==
LOC: ED 08:51
PROVIDERS: Family Medicine
PROC: 06HY33Z Insertion of Infusion Device into Lower Vein, Percutaneous Approach (ICD-10-PCS; principal; 2022-10-27)
PROC: 0BH17EZ Insertion of Endotracheal Airway into Trachea, Via Natural or Artificial Opening (ICD-10-PCS; 2022-10-27)
PROC: 5A12012 Performance of Cardiac Output, Single, Manual (ICD-10-PCS; 2022-10-27)
PROC: 3E043XZ Introduction of Vasopressor into Central Vein, Percutaneous Approach (ICD-10-PCS; 2022-10-27)
PROC: 30243N1 Transfusion of Nonautologous Red Blood Cells into Central Vein, Percutaneous Approach (ICD-10-PCS; 2022-10-27)
DX: I46.9 Cardiac arrest, cause unspecified (principal); E11.9 Type 2 diabetes mellitus without complications; I10 Essential (primary) hypertension; K21.9 Gastro-esophageal reflux disease without esophagitis; E78.5 Hyperlipidemia, unspecified